=== PATIENT | female | born 1950 | race African-American/Black ===

== ENCOUNTER 2019-09-09 19:28 | Inpatient (IN) | payer MEDICARE, OTHER ==
[~2019-09-09 19:28] MED LIST: Heparin 1,000 UNITS/ML VIAL ONE
[2019-09-09 20:42] LABS: Anion Gap 21 mmol/L (10-20); BUN (Urea Nitrogen) 22 mg/dL (9.8-20.1); Calc. Creatinine Clearance 0 mL/min (70-130); Calcium 8.5 mg/dL (7.8-10.44); Carbon Dioxide 21 mmol/L (23-31); Chloride 102 mmol/L (98-107); Estimated GFR-MDRD 43; Glucose 98 mg/dL (80-115); Magnesium 1.7 mg/dL (1.6-2.6); Sodium 141 mmol/L (136-145)
[2019-09-09 20:50] LABS: Potassium 2.6 mmol/L (3.5-5.1)
[2019-09-09] MEDS ORDERED: Potassium Chloride 20 MEQ TAB ONE (20:52)
--- NOTE | 2019-09-09 21:02 | PDOC.HHP ---
Hospitalist HPI - History of Present Illness tingling of lips and hands History of Present Illness: Patient presents complaining of tingling in her lips and hands for the last couple of days. Reports having diarrhea x 3 yesterday and x 1 today. It was very watery. Her stools have always fluctuated between diarrhea and constipation but no known underlying bowel disease. States she has had electrolyte issues in the past as well. Reports her main reason for coming in was tightness in her chest for the last week. She states this comes and goes. She feels tightness in her back as well. Not worse with movement. No associated cough or shortness of breath. No trauma. No nausea/vomiting. Denies any dizziness. No recent fevers or chills. She had an xray done at [facility] where she was initially seen and CXR was unremarkable. Currently she is asymptomatic. She has some pain in her left knee which is chronic. ED Course: At [facility] ED Dr. Schultz states she had an EKG that was unremarkable. Mg+ 1.0 and K+ 2.2, she was given 20 mEq of Potassium Chloride and 1 gm of Mg Sulfate, then transferred here. He plans to obtain a BMP and will give additional electrolyte replacement. Will also obtain a repeat EKG. Hospitalist ROS - Review of Systems Constitutional: denies: fever, chills, sweats, weakness, malaise, other Eyes: denies: pain, vision change, conjunctivae inflammation, eyelid inflammation, redness, other ENT: denies: ear pain, ear discharge, nose pain, nose discharge, nose congestion , mouth pain, mouth swelling, throat pain, throat swelling, other Respiratory: denies: cough, dry, shortness of breath, hemoptysis, SOB with excertion, pleuritic pain, sputum, wheezing, other Cardiovascular: reports: other (chest tightness). denies: chest pain, palpitations, orthopnea, paroxysmal noc. dyspnea, edema, light headedness Gastrointestinal: reports: diarrhea. denies: nausea, vomiting, abdominal pain, constipation, melena, hematochezia, other Genitourinary: denies: dysuria, frequency, incontinence, hematuria, retention, other Musculoskeletal: reports: back pain, other (left knee pain, chronic) Skin: denies: rash, lesions, emeka, bruising, other Neurological: reports: other (perioral tingling and tingling of both hands.). denies: weakness, numbness, incoordination, change in speech, confusion, seizures - Medication Medications: ALLERGIES: No known drug allergies. CURRENT MEDICATIONS: Aspirin [facility] Sep 09, 2019 19:33 [facility] [place] [place] TABLET, CHEWABLE : Strength - 81 mg : ORAL Patient Dose: 1 tab(s) Oral once a day. folic acid oral [facility] Sep 09, 2019 19:33 [facility] [place] TABLET : Strength - 1 mg : ORAL Patient Dose: 1 tab(s) Oral once a day. lisinopril [facility] Sep 09, 2019 19:33 [facility] [place] [place] TABLET : Strength - 10 mg : ORAL Patient Dose: 1 tab(s) Oral once a day. Norvasc [facility] Sep 09, 2019 19:34 KAIT [facility] [place] tablet : Strength - 10 mg : ORAL Patient Dose: Unknown. Lipitor [facility] Sep 09, 2019 19:34 KA[facility] [place] [place] tablet : Strength - 10 mg : ORAL Patient Dose: Unknown. Hospitalist History - Past Medical History Source: patient Cardiac: reports: HTN, Hyperlipidemia Musculoskeletal: reports: Chronic low back pain Rheumatologic: reports: Gout, Rheumatoid arthritis Endocrine: reports: Diabetes - Past Surgical History Past Surgical History: reports: Hysterectomy - Family History Family History: reports: no pertinent history - Social History Smoking Status: Current every day smoker (1/2 ppd) Alcohol: reports: Heavy (On the weekends she drinks 1 pint of jersey) Drugs: reports: none Living Situation: With Family Activity level: uses cane/walker (sometimes able to walk independently when not having issues with her RA or gout) - Exam General Appearance: NAD Eye: PERRL, anicteric sclera ENT: dry oral mucosa Neck: supple, no lymphadenopathy Heart: RRR, normal peripheral pulses Respiratory: CTAB, no rales, no ronchi, normal chest expansion, no tachypnea Respiratory - other findings: no discomfort with palpation of chest Gastrointestinal: soft (obese), non-tender, normal bowel sounds, no guarding, no rigidity Extremities: no edema Neurological - other findings: altered sensation of fingers in both hands improving Musculoskeletal: no muscle wasting Musculoskeletal - other findings: Severe deformity of PIP joints in right hand, also left 2st MTP joint boggy Psychiatric: normal affect, A&O x 3 Hospitalist Results - Labs Result Diagrams: 09/09/19 20:15 Lab results: Sodium 141 mmol/L (136-145) 09/09/19 20:15 Potassium 2.6 mmol/L (3.5-5.1) L* 09/09/19 20:15 Chloride 102 mmol/L (98-107) 09/09/19 20:15 Carbon Dioxide 21 mmol/L (23-31) L 09/09/19 20:15 BUN 22 mg/dL (9.8-20.1) H 09/09/19 20:15 Creatinine 1.47 mg/dL (0.6-1.1) H 09/09/19 20:15 Glucose 98 mg/dL (80-115) 09/09/19 20:15 Calcium 8.5 mg/dL (7.8-10.44) 09/09/19 20:15 - EKG Interpretation EKG: NSR per Dr. Schultz. Hospitalist H&P A/P - Problem (1) Hypomagnesemia Code(s): E83.42 - HYPOMAGNESEMIA Status: Acute (2) Hypokalemia Code(s): E87.6 - HYPOKALEMIA Status: Acute (3) Chest tightness Code(s): R07.89 - OTHER CHEST PAIN Status: Acute (4) Diarrhea Code(s): R19.7 - DIARRHEA, UNSPECIFIED Status: Acute (5) HTN (hypertension) Code(s): I10 - ESSENTIAL (PRIMARY) HYPERTENSION Status: Chronic (6) HLD (hyperlipidemia) Code(s): E78.5 - HYPERLIPIDEMIA, UNSPECIFIED Status: Chronic (7) Gout Code(s): M10.9 - GOUT, UNSPECIFIED Status: Chronic (8) Rheumatoid arthritis Code(s): M06.9 - RHEUMATOID ARTHRITIS, UNSPECIFIED Status: Chronic - Plan Plan: Monitor electrolytes and continue to replace as necessary. Awaiting repeat EKG. Stool studies including c. diff. Trend troponins. Telemetry monitoring. Gentle IV fluids. Check BNP, TSH, AM lipid panel. Reconcile home medications once verified. CODE STATUS FULL Surrogate Decision maker, her niece Alicia Richards,
[2019-09-09] MEDS ORDERED: Potassium Chloride 40 MEQ in Sodium Chloride 0.9% 500 ML IVPB SCH (21:30)
[2019-09-09] MEDS ORDERED: Acetaminophen 650 MG Suppository PR PRN (22:21)
[2019-09-09] MEDS ORDERED: Sodium Chloride 0.9% 1,000 ML IV SCH (22:30)
[2019-09-09 22:55] VITALS: BMI 33.7
[2019-09-10 01:14] LABS: Anion Gap 18 mmol/L (10-20); BUN (Urea Nitrogen) 21 mg/dL (9.8-20.1); Calc. Creatinine Clearance 60 mL/min (70-130); Calcium 8.3 mg/dL (7.8-10.44); Carbon Dioxide 23 mmol/L (23-31); Chloride 106 mmol/L (98-107); Estimated GFR-MDRD 47; Glucose 95 mg/dL (80-115); Sodium 144 mmol/L (136-145)
[2019-09-10 01:19] LABS: Potassium 2.7 mmol/L (3.5-5.1)
[2019-09-10] MEDS ORDERED: Potassium Chloride 20 MEQ TAB PO SCH ×4 (02:00→12:00)
[2019-09-10 04:34] LABS: #Lymphocytes 0.7 thou/uL (1.20-3.40); #Monocytes 0.4 thou/uL (0.11-0.59); %Basophils 0.1 % (0.0-1.0); %Eosinophils 0.2 % (0.0-10.0); %Lymphocytes 8.2 % (21.0-51.0); %Monocytes 3.8 % (0.0-10.0); %Neutrophils 87.7 % (42.0-75.0); Hemoglobin 8.5 g/dL (12.0-16.0); Mean Corpuscular HGB CONC 33.3 g/dL (32.0-36.0); Mean Corpuscular Hemoglobin 32.4 pg (27.0-31.0); Mean Corpuscular Volume 97.4 fL (78.0-98.0); Mean Platelet Volume 8.1 fL (7.4-10.4); Platelet Count 172 thou/uL (130-400); RBC Distribution Width 15.3 % (11.5-14.5); Red Blood Cell (RBC) Count 2.62 mill/uL (4.20-5.40); White Blood Cell (WBC) Count 9.1 thou/uL (4.8-10.8)
[2019-09-10] MEDS ORDERED: Magnesium Sulfate 4 GM in Sodium Chloride 0.9% 250 ML 250 ML IVPB SCH (06:30)
[2019-09-10] MEDS ORDERED: Potassium Phosphate 30 MMOL in Sodium Chloride 0.9% 250 ML 250 ML IVPB SCH ×2 (06:30→12:00)
[2019-09-10] MEDS ORDERED: NS 0.9% w/ 40 MEQ KCL 1,000 ML IV SCH (06:30)
[2019-09-10] MEDS ORDERED: Magnesium 2 GM/50 ML 2 GM in Premix Bag 1 BAG IVPB SCH ×2 (06:30→12:00)
[2019-09-10 07:08] LABS: Phosphorus 1.7 mg/dL (2.3-4.7)
[2019-09-10] MEDS: Cyanocobalamin (Vitamin B-12) 1,000 MCG TAB PO SCH (08:29)
[2019-09-10] MEDS: Multivit, Therapeutic 1 TAB PO SCH (08:29)
[2019-09-10] MEDS ORDERED: Prevnar 13-Val Conj/PF 0.5 ML SYRINGE IM ONE (09:00)
--- NOTE | 2019-09-10 09:20 | PDOC.HOSPP ---
- Subjective Encounter Date: 09/10/19 Encounter Time: 07:30 Subjective: Patient seen and examined for Acute Gastroenteritis/Gen weakness. No IV access. Diarrhea +. No new complaints. No overnight events - Objective Vital Signs & Weight: Vital Signs (12 hours) Temp Pulse Resp BP BP Pulse Ox 09/10/19 03:51 98.7 F 88 18 120/60 98 09/09/19 23:14 98.3 F 97 18 115/55 L 99 09/09/19 22:54 98.3 F 97 18 115/55 L 99 Weight Weight 209 lb I&O: 09/09/19 09/10/19 09/11/19 06:59 06:59 06:59 Intake Total 200 Balance 200 Result Diagrams: 09/10/19 04:13 09/10/19 00:46 Additional Labs: Microbiology 09/10/19 03:17 Stool - Pending C. difficile GDH Antigen & Toxins - Final 09/10/19 03:17 Rectum Stool Lactoferrin - Final 09/10/19 03:17 Rectum Rapid Parasite Screen - Final 09/10/19 03:17 Rectum Campylobacter Antigen Assay - Final 09/10/19 03:17 Rectum Shiga Toxin Test - Final Laboratory Tests 09/10/19 09/10/19 00:46 00:46 Phosphorus 1.7 L Magnesium 1.6 Radiology Reviewed by me: Yes (CXR - no infiltrate) EKG Reviewed by me: Yes (Tele SR) Hospitalist ROS - Review of Systems Respiratory: denies: cough, dry, shortness of breath, hemoptysis, SOB with excertion, pleuritic pain, sputum, wheezing, other Cardiovascular: denies: chest pain, palpitations, orthopnea, paroxysmal noc. dyspnea, edema, light headedness, other Gastrointestinal: reports: nausea, diarrhea. denies: vomiting, abdominal pain, constipation, melena, hematochezia - Medication Medications: Active Medications Generic Name Dose Route Start Last Admin Trade Name Freq PRN Reason Stop Dose Admin Cyanocobalamin 1,000 mcg 09/10/19 09:00 09/10/19 08:29 Vitamin B-12 PO 1,000 mcg DAILY [place] Administration Multivitamins 1 tab 09/10/19 09:00 09/10/19 08:29 Theragran PO 1 tab DAILY [place] Administration - Exam General Appearance: NAD Neck: supple, no JVD Heart: RRR, no gallops, no rubs, normal peripheral pulses Respiratory: no wheezes, no rales, no ronchi, normal chest expansion Gastrointestinal: soft, non-tender, non-distended, normal bowel sounds Extremities: no cyanosis, no clubbing Skin: normal turgor Neurological: no new deficit Psychiatric: normal affect, A&O x 3 Hosp A/P - Plan DVT proph w/SCDs Acute infectious Gastroenteritis/Gen weakness Atypical CP Dehydration Hypokalemia Hypomagnesemia Hypophosphatemia CKD 3 Gout Obesity BMI 33.7 HTN HLD PLAN: Pt has no IV access after multiple attempt Will need PICC line due to significant electrolyte abn and continued diarrhea 2 gm IV Magnesium x 1 30 mmol Potassium phosphate x 1 Start IVF Recheck labs later today and in AM Cdiff ruled out Hold Atbx for now Add IV Pepcid
[2019-09-10] MEDS ORDERED: metroNIDAZOLE 500 MG in Premix Bag 1 BAG IVPB SCH (10:00)
[2019-09-10] MEDS: Acetaminophen 325 MG TAB PO PRN ×3 (11:51→21:03)
--- NOTE | 2019-09-10 12:18 | SPC ---
Sonographic guided PICC placement HISTORY: Sepsis. FINDINGS: After explaining the procedure and answering all questions, the left upper extremity was pr epped and draped in usual sterile fashion. Sterile technique, buffered local anesthesia, sonographic guidance, and a 22-gauge needle were used to carefully access the left basilic vein. Aravind dard technique was used to place the tip of a 5 Congolese dual-lumen PICC so that the tip lies at the level of the cavoatrial junction. Catheter was flushed and secured externally. Patient tolerated the procedure well and was returned in unchanged condition. Fluoroscopy time 0 seconds. IMPRESSION : Left upper extremity PICC is ready for use.
[2019-09-10] MEDS: Famotidine/PF 20 mg/2ml Vial SLOW IVP SCH ×2 (12:19→21:03)
[2019-09-10 14:30] LABS: Lactic Acid 2.7 mmol/L (0.5-2.2)
[2019-09-10 14:33] LABS: Anion Gap 16 mmol/L (10-20); BUN (Urea Nitrogen) 18 mg/dL (9.8-20.1); Calc. Creatinine Clearance 67 mL/min (70-130); Calcium 8.5 mg/dL (7.8-10.44); Carbon Dioxide 22 mmol/L (23-31); Chloride 106 mmol/L (98-107); Estimated GFR-MDRD 54; Glucose 189 mg/dL (80-115); Magnesium 1.9 mg/dL (1.6-2.6); Potassium 3.9 mmol/L (3.5-5.1); Sodium 140 mmol/L (136-145)
[2019-09-10] MEDS: NS 0.9% w/ 40 MEQ KCL 1,000 ML IV SCH ×2 (14:53→22:41)
[2019-09-10] MEDS: Loperamide HCl 2 MG CAP PO PRN ×2 (15:10→21:04)
--- NOTE | 2019-09-10 15:19 | EKG ---
Test Reason : Blood Pressure : / mmHG Vent. Rate : 106 BPM Atrial Rate : 106 BPM P-R Int : 140 ms QRS Dur : 078 ms QT Int : 300 ms P-R-T Axes : 048 -18 126 degrees QTc Int : 398 ms Sinus tachycardia Low voltage QRS Nonspecific T wave abnormality Abnormal ECG Confirmed by STEVE MALDONADO ([id number]), pictures editor IDALIA COELLO ([id number]) on 09/10/2019 3:19:03 PM Referred By: Confirmed By:STEVE Mckinney
[2019-09-10] MEDS: Amlodipine 5 MG TAB PO SCH (21:04)
[2019-09-11 04:35] LABS: ALT (SGPT) 13 U/L (8-55); AST (SGOT) 26 U/L (5-34); Albumin 2.4 g/dL (3.4-4.8); Alkaline Phosphatase 54 U/L (40-110); Anion Gap 10 mmol/L (10-20); BUN (Urea Nitrogen) 15 mg/dL (9.8-20.1); Bilirubin, Total 0.5 mg/dL (0.2-1.2); Calc. Creatinine Clearance 85 mL/min (70-130); Calcium 8.3 mg/dL (7.8-10.44); Carbon Dioxide 24 mmol/L (23-31); Chloride 111 mmol/L (98-107); Estimated GFR-MDRD 71; Globulin 2.9 g/dL (2.4-3.5); Glucose 112 mg/dL (80-115); Magnesium 1.6 mg/dL (1.6-2.6); Potassium 5.2 mmol/L (3.5-5.1); Protein, Total 5.3 g/dL (6.0-8.3); Sodium 140 mmol/L (136-145)
[2019-09-11 04:39] LABS: Phosphorus 1.9 mg/dL (2.3-4.7)
[2019-09-11 04:59] LABS: Band 18 % (5-11); Eosinophils 3 % (0-10); Hemoglobin 8.2 g/dL (12.0-16.0); Lymphocytes 12 % (21-51); MDiff Complete? YES; Mean Corpuscular HGB CONC 32.8 g/dL (32.0-36.0); Mean Corpuscular Hemoglobin 32.6 pg (27.0-31.0); Mean Corpuscular Volume 99.3 fL (78.0-98.0); Monocytes 10 % (0-10); Neutrophil 57 % (42-75); Platelet Count 162 thou/uL (130-400); RBC Distribution Width 15.6 % (11.5-14.5); Red Blood Cell (RBC) Count 2.51 mill/uL (4.20-5.40); White Blood Cell (WBC) Count 8.6 thou/uL (4.8-10.8)
[2019-09-11] MEDS: Sodium Chloride 0.9% 1,000 ML IV SCH ×2 (05:22→20:41)
[2019-09-11] MEDS: Folic Acid 1 MG TAB PO SCH (09:30)
[2019-09-11] MEDS: Amlodipine 5 MG TAB PO SCH ×2 (09:30→20:42)
[2019-09-11] MEDS: Famotidine/PF 20 mg/2ml Vial SLOW IVP SCH ×2 (09:30→20:44)
[2019-09-11] MEDS: Multivit, Therapeutic 1 TAB PO SCH (09:30)
[2019-09-11] MEDS: Cyanocobalamin (Vitamin B-12) 1,000 MCG TAB PO SCH (09:30)
[2019-09-11] MEDS: Atorvastatin Calcium 10 MG TAB PO SCH (09:30)
[2019-09-11] MEDS: Aspirin 81 mg Enteric Coated Tablet PO SCH (09:30)
[2019-09-11] MEDS: Loperamide HCl 2 MG CAP PO PRN ×2 (09:31→20:44)
[2019-09-11] MEDS ORDERED: Ketorolac Tromethamine 30 MG/ML VIAL IVP SCH (11:00)
[2019-09-11] MEDS: Acetaminophen 325 MG TAB PO PRN ×2 (12:16→20:44)
--- NOTE | 2019-09-11 14:51 | PDOC.HOSPP ---
- Subjective Encounter Date: 09/11/19 Encounter Time: 14:47 Subjective: Ms. Shaw was seen today in follow-up of numbness and tingling in both hands. she says the problem persists, and she wants to know why. She says she can not go home with her hands in this condition. She denies any weakness. - Objective Vital Signs & Weight: Vital Signs (12 hours) Temp Pulse Pulse Pulse Resp BP BP 09/11/19 12:14 98.5 F 101 H 16 09/11/19 09:30 101 H 09/11/19 09:07 106 H 105 H 123/60 109/55 L 09/11/19 07:45 09/11/19 07:38 98.4 F 101 H 18 09/11/19 03:21 98.3 F 99 20 BP Pulse Ox 09/11/19 12:14 135/68 96 09/11/19 09:30 09/11/19 09:07 09/11/19 07:45 95 09/11/19 07:38 141/72 H 95 09/11/19 03:21 131/58 L 95 Weight Admit Weight 209 lb Weight 209 lb I&O: 09/10/19 09/11/19 09/12/19 06:59 06:59 06:59 Intake Total 200 1500 Output Total 1125 Balance 200 375 Result Diagrams: 09/11/19 04:00 09/11/19 04:00 Additional Labs: Accuchecks 09/11/19 09/11/19 09/10/19 10:41 05:39 20:39 POC Glucose 119 H 124 H 198 H 09/10/19 16:35 POC Glucose 108 Hospitalist ROS - Medication Medications: Active Medications Generic Name Dose Route Start Last Admin Trade Name Freq PRN Reason Stop Dose Admin Acetaminophen 650 mg 09/09/19 22:21 09/11/19 12:16 Tylenol PO 650 mg Q4H PRN Administration Headache/Fever/Mild Pain (1-3) Amlodipine Besylate 5 mg 09/10/19 21:00 09/11/19 09:30 Norvasc PO 5 mg BID [place] Administration Aspirin 81 mg 09/11/19 09:00 09/11/19 09:30 Ecotrin PO 81 mg DAILY [place] Administration Atorvastatin Calcium 10 mg 09/11/19 09:00 09/11/19 09:30 Lipitor PO 10 mg DAILY [place] Administration Cyanocobalamin 1,000 mcg 09/10/19 09:00 09/11/19 09:30 Vitamin B-12 PO 1,000 mcg DAILY [place] Administration Famotidine 20 mg 09/10/19 09:00 09/11/19 09:30 Pepcid SLOW IVP 20 mg BID [place] Administration Folic Acid 1 mg 09/11/19 09:00 09/11/19 09:30 Folvite PO 1 mg DAILY [place] Administration Sodium Chloride 1,000 mls @ 70 mls/hr 09/11/19 05:30 09/11/19 05:22 Normal Saline 0.9% IV 1,000 mls .[id number] [place] Administration Loperamide HCl 2 mg 09/10/19 14:29 09/11/19 09:31 Imodium PO 2 mg PRN PRN Administration Diarrhea/Loose Stools Multivitamins 1 tab 09/10/19 09:00 09/11/19 09:30 Theragran PO 1 tab DAILY [place] Administration - Exam Eye: PERRL Heart: RRR, no murmur, no gallops, no rubs, normal peripheral pulses Respiratory: CTAB, no wheezes, no rales, no ronchi, normal chest expansion, no tachypnea, normal percussion Gastrointestinal: soft, non-tender, non-distended, normal bowel sounds, no palpable masses Extremities: no cyanosis, no clubbing (+ tophaceous depositins in the distal PIP of the right hand, goor radial and ulnar pulses bilaterally) Hosp A/P (1) Numbness and tingling in both hands Code(s): R20.0 - ANESTHESIA OF SKIN; R20.2 - PARESTHESIA OF SKIN Status: Acute (2) Diarrhea Code(s): R19.7 - DIARRHEA, UNSPECIFIED Status: Acute (3) Gout Code(s): M10.9 - GOUT, UNSPECIFIED Status: Chronic (4) HTN (hypertension) Code(s): I10 - ESSENTIAL (PRIMARY) HYPERTENSION Status: Chronic - Plan * Numbness and tingling in both hands- I suspect this is due to the severe tophaceous deposits in the hands, she may have as well in the wrist, and could be causing CTS * Will check an X-ray f both hands to see if there are significant deposits at the level of the wrist * Will also obtain an MRI of the C-spine * Check a TSH, and re-check her electrolytes * I have also recommended that she obtain an outpatient EMG once this is available * Gout- recommend outpatient Rheumatology evaluation- and will check a serum uric acid level * Diarrhea- resolved * HTN- blood pressure is controlled * Hopefully home tomorrow
[2019-09-11 15:36] LABS: Anion Gap 15 mmol/L (10-20); BUN (Urea Nitrogen) 12 mg/dL (9.8-20.1); Calc. Creatinine Clearance 79 mL/min (70-130); Calcium 8.6 mg/dL (7.8-10.44); Carbon Dioxide 20 mmol/L (23-31); Chloride 109 mmol/L (98-107); Estimated GFR-MDRD 65; Glucose 143 mg/dL (80-115); Potassium 5.1 mmol/L (3.5-5.1); Sodium 139 mmol/L (136-145); Uric Acid 10.7 mg/dL (2.6-6.0)
[2019-09-11 16:08] LABS: Thyroid Stimulating Hormone 2.7656 uIU/mL (0.35-4.94)
--- NOTE | 2019-09-11 18:34 | RAD ---
Exam:3 views right hand HISTORY: Numbness COMPARISON: None FINDINGS: Diffuse bone mineralization. Polyarticular erosive arthropathy with associated soft tissue swelling. IMPRESSION: Polyarticular erosive arthropathy. Evaluate for rheumatoid arthritis versus psoriatic art hritis. Transcribed Date/Time: 09/11/2019 6:45 PM
--- NOTE | 2019-09-11 18:45 | RAD ---
TWO VIEWS OF THE LEFT HAND: 09/11/19 INDICATION: History of left hand numbness. COMPARISON: None. FINDINGS: There is diffuse osteopenia. There are areas of periarticular erosion involving the thumb metacarpal head, index finger metacarpal head, long finger metacarpal head and small digit radiocarpal head. Sma ll erosive change is seen at the base of the ulnar styloid process, ulnar styloid process itself as w ell as the radial styloid process. There is diffuse soft tissue swelling. No acute fracture is evide nt. 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 Findings are fairly symmetric with the contralateral right hand raising suspicion for entity such as rheumatoid arthritis. Psoriatic arthritis could produce a similar findings. POS: BH
[2019-09-12 02:22] LABS: Bacteria/HPF 3+ HPF (None Seen); Bilirubin Negative (Negative); Blood, Urine 1+ (Negative); Clarity Turbid (Clear); Glucose, Urine (Dipstick) Normal (Negative); Leukocyte 500 Leu/uL (Negative); Nitrite 2+ (Negative); Protein, Urine (Dipstick) 10 mg/dL (Neg-Trace); Squamous Epithelial 0-3 HPF (0-3); Urobilinogen Normal mg/dL (Less than 2); WBC/HPF Greater than 50 HPF (0-3)
[2019-09-12 02:23] LABS: Urine Culture Reflex Yes Yes
[2019-09-12] MEDS ORDERED: cefTRIAXone\\ROCEPHIN 1 GM in Sodium Chloride 0.9% 100 ML IVPB SCH (04:00)
[2019-09-12 06:24] LABS: Anion Gap 10 mmol/L (10-20); BUN (Urea Nitrogen) 10 mg/dL (9.8-20.1); Calc. Creatinine Clearance 96 mL/min (70-130); Calcium 8.9 mg/dL (7.8-10.44); Carbon Dioxide 26 mmol/L (23-31); Estimated GFR-MDRD 77; Glucose 89 mg/dL (80-115)
[2019-09-12 06:52] LABS: Chloride 110 mmol/L (98-107); Sodium 141 mmol/L (136-145)
[2019-09-12] MEDS: Atorvastatin Calcium 10 MG TAB PO SCH (08:47)
[2019-09-12] MEDS: Amlodipine 5 MG TAB PO SCH (08:47)
[2019-09-12] MEDS: Famotidine/PF 20 mg/2ml Vial SLOW IVP SCH (08:47)
[2019-09-12] MEDS: Cyanocobalamin (Vitamin B-12) 1,000 MCG TAB PO SCH (08:47)
[2019-09-12] MEDS: Multivit, Therapeutic 1 TAB PO SCH (08:47)
[2019-09-12] MEDS: Aspirin 81 mg Enteric Coated Tablet PO SCH (08:47)
[2019-09-12] MEDS: Folic Acid 1 MG TAB PO SCH (08:47)
[2019-09-12] MEDS: Sodium Chloride 0.9% 1,000 ML IV SCH (08:48)
--- NOTE | 2019-09-12 12:01 | MRI ---
MR CERVICAL SPINE WITHOUT CONTRAST INDICATION: Bilateral hand numbness TECHNIQUE: Multiplanar multisequence MR images were obtained of the cervical spine without contrast. COMPARISON: None FINDINGS: Motion artifact heavily degrades image detail Posterior fossa: Within normal limits. Bone marrow signal intensity: Normal Spinal alignment: Normal. Craniocervical junction: Normal appearing. Prevertebral and perivertebral soft tissues: Visualized soft tissues appear within normal limits. Vertebral levels: C2-C3: Mild facet osteoarthrosis but no appreciable central canal or neural foraminal narrowing. C3-4: There is uncovertebral hypertrophy and facet joint degenerative change inducing mild left neura l foraminal narrowing. There is a mild broad-based disc bulge inducing mild central canal narrowing. C4-5: There is a broad-based bulge with uncovertebral hypertrophy and facet joint degenerative nugent e inducing mild left and moderate right neural foraminal narrowing. There is mild central canal narrowing. C5-C6: Broad-based bulge with uncovertebral hypertrophy facet joint degenerative change inducing mild central canal narrowing. C6-C7:, There is uncovertebral hypertrophy and facet joint degenerative change inducing moderate left neural foraminal narrowing. There is a mild broad-based bulge causing mild effacement of ventral subarachnoid space without cord contact. C7-T1: No appreciable central canal or neuroforaminal narrowing. IMPRESSION: 1. Limitation exam due to motion artifact. 2. Multilevel neural foraminal narrowing as above.
--- NOTE | 2019-09-12 14:18 | PDOC.HOSPP ---
- Subjective Encounter Date: 09/12/19 Encounter Time: 14:15 Subjective: Ms. Shaw was seen today in follow-up of numbness in her finger tips. she does not have any new complaints. GI symptoms have resolved. - Objective Vital Signs & Weight: Vital Signs (12 hours) Temp Pulse Resp BP Pulse Ox 09/12/19 12:00 97.8 F 106 H 19 124/60 99 09/12/19 08:47 106 H 09/12/19 08:00 97.1 F L 113 H 17 130/65 100 09/12/19 04:00 98.3 F 106 H 18 130/65 96 Weight Admit Weight 209 lb Weight 219 lb 5.759 oz I&O: 09/11/19 09/12/19 09/13/19 06:59 06:59 06:59 Intake Total 1500 2670 Output Total 1125 403 Balance 375 2267 Result Diagrams: 09/11/19 04:00 09/12/19 05:50 Additional Labs: Accuchecks 09/12/19 09/11/19 09/11/19 10:47 20:26 16:36 POC Glucose 108 125 H 124 H 09/10/19 06:14 POC Glucose 96 Hospitalist ROS - Medication Medications: Active Medications Generic Name Dose Route Start Last Admin Trade Name Freq PRN Reason Stop Dose Admin Acetaminophen 650 mg 09/09/19 22:21 09/11/19 20:44 Tylenol PO 650 mg Q4H PRN Administration Headache/Fever/Mild Pain (1-3) Amlodipine Besylate 5 mg 09/10/19 21:00 09/12/19 08:47 Norvasc PO 5 mg BID [place] Administration Aspirin 81 mg 09/11/19 09:00 09/12/19 08:47 Ecotrin PO 81 mg DAILY [place] Administration Atorvastatin Calcium 10 mg 09/11/19 09:00 09/12/19 08:47 Lipitor PO 10 mg DAILY [place] Administration Cyanocobalamin 1,000 mcg 09/10/19 09:00 09/12/19 08:47 Vitamin B-12 PO 1,000 mcg DAILY [place] Administration Famotidine 20 mg 09/10/19 09:00 09/12/19 08:47 Pepcid SLOW IVP 20 mg BID [place] Administration Folic Acid 1 mg 09/11/19 09:00 09/12/19 08:47 Folvite PO 1 mg DAILY [place] Administration Sodium Chloride 1,000 mls @ 70 mls/hr 09/11/19 05:30 09/12/19 08:48 Normal Saline 0.9% IV 1,000 mls .[id number] [place] Administration Ceftriaxone Sodium 1 gm/ 100 mls @ 200 mls/hr 09/12/19 04:00 09/12/19 04:19 Sodium Chloride IVPB 100 mls 0400 [place] Administration Loperamide HCl 2 mg 09/10/19 14:29 09/11/19 20:44 Imodium PO 2 mg PRN PRN Administration Diarrhea/Loose Stools Multivitamins 1 tab 09/10/19 09:00 09/12/19 08:47 Theragran PO 1 tab DAILY [place] Administration - Exam Eye: PERRL Heart: RRR, no murmur, no gallops, no rubs, normal peripheral pulses Respiratory: CTAB, no wheezes, no rales, no ronchi, normal chest expansion, no tachypnea Gastrointestinal: soft, non-tender, non-distended, normal bowel sounds, no palpable masses, no hepatomegaly Extremities: no cyanosis Hosp A/P (1) Numbness and tingling in both hands Code(s): R20.0 - ANESTHESIA OF SKIN; R20.2 - PARESTHESIA OF SKIN Status: Acute (2) Diarrhea Code(s): R19.7 - DIARRHEA, UNSPECIFIED Status: Acute (3) Gout Code(s): M10.9 - GOUT, UNSPECIFIED Status: Chronic (4) HTN (hypertension) Code(s): I10 - ESSENTIAL (PRIMARY) HYPERTENSION Status: Chronic - Plan * Numbness and tingling in both hands- MRI of the C- spine was reviewed. There were no worrisome findings * Thyroid function was normal, as well as calcium levels. * Discussed with the patient in detail * She is stable for discharge home
[2019-09-12 16:02] VITALS: BP 128/64; TEMP 97.2
--- NOTE | 2019-09-13 01:21 | DIS ---
DATE OF ADMISSION: 09/09/2019 DATE OF DISCHARGE: 09/12/2019 PRIMARY CARE PROVIDER: Alicia Claudio. DISCHARGE DISPOSITION: Home. PRIMARY DISCHARGE DIAGNOSES: 1. Gastroenteritis, resolved. 2. Tophaceous gout. 3. Rheumatoid arthritis. 4. Morbid obesity with a BMI of 35. 5. Hypertension. 6. Diabetes mellitus type 2. 7. Probable carpal tunnel syndrome. DISCHARGE MEDICATIONS: Please note that the patient had been off allopurinol for several years and restarting today at 100 mg daily. 1. Lisinopril 10 mg daily. 2. Folic acid 1 mg daily. 3. Lipitor 10 mg daily. 4. Aspirin 81 mg daily. 5. Norvasc 10 mg a day. IMAGING DONE DURING HOSPITAL STAY: The patient had an echocardiogram which the ejection fraction was estimated at 60% to 65%. There was some E to A flow reversal suggestive of diastolic dysfunction, and the patient had an MRI of the cervical spine showing some multilevel degenerative or neural foraminal narrowing. CODE STATUS: Full code. ALLERGIES: NO KNOWN DRUG ALLERGIES. HOSPITAL COURSE: Ms. Shaw is a pleasant 69-year-old female, who presented to the emergency room complaining of tingling in her hands and lips. She says it has been for the last couple of days. She also was having some diarrhea off and on for a day, which was watery. She was admitted to the hospital and the diarrhea was evaluated. She had stool studies done, all of which were negative for C diff, Campylobacter, lactoferrin O and P screen, this actually resolved without specific treatment. However, the patient continued to complain of some numbness and tingling in her hands particularly. She originally had some hypomagnesemia and hypokalemia, which was thought to be the culprit. However, once this was replaced, she continued to have these complaints. The patient was noted to have fairly severe tophaceous gout in her distal PIP joints on both the right and left hand, but primarily on the right hand to the point where the tophi were visible within a naked eye. I suspect that this is likely the culprit of her numbness and tingling and she could have some deposits within the wrist, which may be causing a carpal tunnel syndrome. Also, diabetes could place her at risk for carpal tunnel syndrome as well. We checked a thyroid function test which was negative. Also, we did an MRI of her cervical spine to rule out any significant cervical disease as a potential etiology. I explained to the patient that she should have an outpatient nerve conduction test done to solidify the diagnosis. Unfortunately, given the COVID-19 pandemic, we are not able to do this now. This would need to be done in the outpatient setting and I also recommended that she see a coding clerks supervisor as well. This is of her current symptoms. Her gout is not well controlled. Her uric acid level was 10.8. When I asked had she had been taking an allopurinol, she stated that she stopped taking it for no particular reason, she was not having any type of side effects. For this reason, we will be restarting the allopurinol and since she only had the numbness and no weakness in her hands, we will go ahead and discharge her home and she is to have close outpatient followup. Job ID: [id number]
== END 2019-09-12 16:09 | disposition home or self-care (01) | DRG 74 ==
LOC: ERS 19:28 → OBSVTOIN 21:24 → 2NO 21:24
PROVIDERS: ADMIT Internal Medicine; ATTEND Internal Medicine
PROC: 02HV33Z Insertion of Infusion Device into Superior Vena Cava, Percutaneous Approach (ICD-10-PCS; principal; 2019-09-10)
PROC: B548ZZA Ultrasonography of Superior Vena Cava, Guidance (ICD-10-PCS; 2019-09-10)
DX: G56.01 Carpal tunnel syndrome, right upper limb (principal); M1A.0411 Idiopathic chronic gout, right hand, with tophus (tophi); E83.42 Hypomagnesemia; E87.6 Hypokalemia; M25.562 Pain in left knee; G89.29 Other chronic pain; I10 Essential (primary) hypertension; E78.5 Hyperlipidemia, unspecified; M54.5 Low back pain; M06.9 Rheumatoid arthritis, unspecified; F17.210 Nicotine dependence, cigarettes, uncomplicated; R07.89 Other chest pain; E78.00 Pure hypercholesterolemia, unspecified; E11.9 Type 2 diabetes mellitus without complications; E83.39 Other disorders of phosphorus metabolism; E66.01 Morbid (severe) obesity due to excess calories; K52.9 Noninfective gastroenteritis and colitis, unspecified; E86.0 Dehydration; N18.3 Chronic kidney disease, stage 3 (moderate); Z68.33 Body mass index [BMI] 33.0-33.9, adult; Z90.710 Acquired absence of both cervix and uterus; Z79.82 Long term (current) use of aspirin; Z79.899 Other long term (current) drug therapy
CPT/HCPCS: 36415; 36416; 36569; 72141; 80048; 80053; 81001; 83605; 83630; 83735; 84100; 84439; 84443; 84484; 84550; 85025; 87045; 87046; 87077; 87086; 87186; 87324; 87328; 87329; 87427; 87449; 93005; 93306; 94760; 96365; C1751; J0696; J1644; J1885; J3475; J3480; J3490; J7030; J7050; S0028

== ENCOUNTER 2022-08-31 19:34 | Emergency (ER) | payer MEDICARE ==
[2022-08-31 21:34] LABS: Hemoglobin 10.9 g/dL (12.0-16.0); Mean Corpuscular HGB CONC 32.6 g/dL (32.0-36.0); Mean Corpuscular Hemoglobin 34.5 pg (27.0-31.0); Mean Platelet Volume 8.6 fL (7.4-10.4); Platelet Count 153 10x3/uL (130-400); RBC Distribution Width 14.9 % (11.5-14.5); Red Blood Cell (RBC) Count 3.16 mill/uL (4.20-5.40)
[2022-08-31 21:56] LABS: ALT (SGPT) 11 U/L (8-55); AST (SGOT) 30 U/L (5-34); Albumin 3.9 g/dL (3.4-4.8); Alkaline Phosphatase 82 U/L (40-110); Anion Gap 19 mmol/L (10-20); BUN (Urea Nitrogen) 23 mg/dL (9.8-20.1); Bilirubin, Total 0.2 mg/dL (0.2-1.2); Calc. Creatinine Clearance 0 mL/min (70-130); Calcium 8.8 mg/dL (7.8-10.44); Carbon Dioxide 15 mmol/L (23-31); Chloride 109 mmol/L (98-107); Estimated GFR 28; Globulin 3.4 g/dL (2.4-3.5); Glucose 89 mg/dL (83-110); Potassium 5.3 mmol/L (3.5-5.1); Protein, Total 7.3 g/dL (5.8-8.1); Sodium 138 mmol/L (136-145)
[2022-08-31] MEDS ORDERED: Bacitracin 1 PK ONE (22:09)
[2022-08-31 22:13] LABS: Anisocytosis SLIGHT = 6-15 cells (100X) (0-5/hpf); Eosinophils 1 % (0-10); Large Platelets SLIGHT; Lymphocytes 15 % (21-51); MDiff Complete? YES; Macrocytosis MODERATE=16-30 cells (100X) (0-5/hpf); Monocytes 8 % (0-10); Neutrophil 76 % (42-75); Ovalocytes SLIGHT = 2-5 cells (100X) (0-1/hpf); Platelet Morphology Comment Appears Adequate
== END 2022-08-31 22:15 | disposition home or self-care (01) ==
LOC: ERS 19:34
DX: S09.90XA Unspecified injury of head, initial encounter (principal); E11.9 Type 2 diabetes mellitus without complications; E78.00 Pure hypercholesterolemia, unspecified; I10 Essential (primary) hypertension; F17.210 Nicotine dependence, cigarettes, uncomplicated; W05.0XXA Fall from non-moving wheelchair, initial encounter
CPT/HCPCS: 36415; 70450; 72125; 80053; 84484; 85025; 93005

== ENCOUNTER 2023-06-23 21:31 | Inpatient (IN) | payer MEDICARE, BC ==
[2023-06-24] MEDS ORDERED: Ondansetron PF 4 MG/2 ML Vial IVP PRN (01:12)
[2023-06-24 01:16] VITALS: BMI 33.4
[2023-06-24] MEDS ORDERED: Dextrose 5% in Water 1,000 ML IV PRN (01:51)
[2023-06-24] MEDS ORDERED: Glucagon 1 MG/ML KIT IM PRN (01:51)
[2023-06-24] MEDS ORDERED: Dextrose 50% Abboject 50 ML SYRINGE SLOW IVP PRN (01:51)
[2023-06-24] MEDS ORDERED: HumaLOG 300 UNITS/3 ML VIAL SC PRN ×2 (01:51)
[2023-06-24 02:13] LABS: #Basophils 0.1 thou/uL (0.0-0.2); #Eosinphils 0.1 thou/uL (0.0-0.7); #Neutrophils 5.7 thou/uL (1.40-6.50); %Basophils 0.6 % (0.0-1.0); %Eosinophils 1.1 % (0.0-10.0); %Lymphocytes 14.3 % (21.0-51.0); %Monocytes 12.3 % (0.0-10.0); %Neutrophils 71.4 % (42.0-75.0); Hematocrit 26.5 % (36.0-47.0); Hemoglobin 8.4 g/dL (12.0-16.0); Mean Corpuscular HGB CONC 31.7 g/dL (32.0-36.0); Mean Corpuscular Volume 94.6 fl (78.0-98.0); Mean Platelet Volume 10.1 fL (7.4-10.4); Platelet Count 233 10x3/uL (130-400); RBC Distribution Width 14.1 % (11.5-14.5)
[2023-06-24 02:35] LABS: Anion Gap 13 mmol/L (10-20); BUN (Urea Nitrogen) 24 mg/dL (9.8-20.1); Calc. Creatinine Clearance 66 mL/min (70-130); Calcium 9.2 mg/dL (7.8-10.44); Carbon Dioxide 17 mmol/L (23-31); Chloride 111 mmol/L (98-107); Estimated GFR 50; Glucose 90 mg/dL (83-110); Magnesium 1.6 mg/dL (1.6-2.6); Sodium 136 mmol/L (136-145)
[2023-06-24 06:26] LABS: #Eosinphils 0.1 thou/uL (0.0-0.7); #Monocytes 0.6 thou/uL (0.11-0.59); %Basophils 0.7 % (0.0-1.0); %Eosinophils 2.2 % (0.0-10.0); %Lymphocytes 19.2 % (21.0-51.0); %Monocytes 10.5 % (0.0-10.0); %Neutrophils 67.1 % (42.0-75.0); Hematocrit 24.8 % (36.0-47.0); Hemoglobin 7.8 g/dL (12.0-16.0); Mean Corpuscular HGB CONC 31.5 g/dL (32.0-36.0); Mean Corpuscular Hemoglobin 30.4 pg (27.0-31.0); Mean Corpuscular Volume 96.5 fl (78.0-98.0); Mean Platelet Volume 9.6 fL (7.4-10.4); Platelet Count 200 10x3/uL (130-400); RBC Distribution Width 14.3 % (11.5-14.5); Red Blood Cell (RBC) Count 2.57 mill/uL (4.20-5.40); White Blood Cell (WBC) Count 5.9 10x3/uL (4.8-10.8)
[2023-06-24] MEDS: Heparin 5,000 UNITS/ML VIAL SC SCH (08:26)
[2023-06-24] MEDS: Allopurinol 300 MG TAB PO SCH (08:31)
[2023-06-24] MEDS: Amlodipine 5 MG TAB PO SCH (08:32)
[2023-06-24] MEDS: Atorvastatin Calcium 20 MG TAB PO SCH (08:33)
[2023-06-24] MEDS: Furosemide 20 MG (2 mL) VIAL SLOW IVP SCH (08:33)
[2023-06-24] MEDS: Aspirin 81 mg Enteric Coated Tablet PO SCH (08:33)
[2023-06-24] MEDS: Folic Acid 1 MG TAB PO SCH (08:33)
[2023-06-24] MEDS: Gabapentin 300 MG CAP PO SCH (08:34)
[2023-06-24] MEDS: Acetaminophen 325 MG TAB PO PRN (08:37)
[2023-06-24] MEDS: Furosemide 40 MG (4 mL) VIAL SLOW IVP SCH (15:04)
[2023-06-25 04:42] LABS: #Eosinphils 0.1 thou/uL (0.0-0.7); #Monocytes 0.5 thou/uL (0.11-0.59); #Neutrophils 2.6 thou/uL (1.40-6.50); %Basophils 0.4 % (0.0-1.0); %Eosinophils 3.1 % (0.0-10.0); %Lymphocytes 28.2 % (21.0-51.0); %Monocytes 11.9 % (0.0-10.0); %Neutrophils 56.2 % (42.0-75.0); Hematocrit 23.3 % (36.0-47.0); Hemoglobin 7.4 g/dL (12.0-16.0); Mean Corpuscular HGB CONC 31.8 g/dL (32.0-36.0); Mean Corpuscular Hemoglobin 30.8 pg (27.0-31.0); Mean Corpuscular Volume 97.1 fl (78.0-98.0); Mean Platelet Volume 9.8 fL (7.4-10.4); Platelet Count 183 10x3/uL (130-400); RBC Distribution Width 14.5 % (11.5-14.5); White Blood Cell (WBC) Count 4.5 10x3/uL (4.8-10.8)
[2023-06-25 05:08] LABS: Iron 30 ug/dL (50-170); Iron Binding Capacity, Total 176 mcg/dL (265-497)
[2023-06-25 05:10] LABS: Anion Gap 8 mmol/L (10-20); BUN (Urea Nitrogen) 21 mg/dL (9.8-20.1); Calc. Creatinine Clearance 57 mL/min (70-130); Calcium 8.6 mg/dL (7.8-10.44); Carbon Dioxide 24 mmol/L (23-31); Chloride 110 mmol/L (98-107); Estimated GFR 42; Glucose 93 mg/dL (83-110); Iron 29 ug/dL (50-170); Iron Binding Capacity, Total 180 mcg/dL (265-497); Potassium 4.3 mmol/L (3.5-5.1); Sodium 138 mmol/L (136-145)
[2023-06-26 06:35] LABS: #Eosinphils 0.2 thou/uL (0.0-0.7); #Monocytes 0.5 thou/uL (0.11-0.59); %Basophils 0.4 % (0.0-1.0); %Monocytes 9.7 % (0.0-10.0); %Neutrophils 56.7 % (42.0-75.0); Hematocrit 24.3 % (36.0-47.0); Hemoglobin 7.7 g/dL (12.0-16.0); Mean Corpuscular HGB CONC 31.7 g/dL (32.0-36.0); Mean Corpuscular Volume 94.6 fl (78.0-98.0); Mean Platelet Volume 10.2 fL (7.4-10.4); Platelet Count 187 10x3/uL (130-400); RBC Distribution Width 13.9 % (11.5-14.5); Red Blood Cell (RBC) Count 2.57 mill/uL (4.20-5.40); White Blood Cell (WBC) Count 5.3 10x3/uL (4.8-10.8)
[2023-06-26 07:07] LABS: Anion Gap 10 mmol/L (10-20); BUN (Urea Nitrogen) 23 mg/dL (9.8-20.1); Calc. Creatinine Clearance 50 mL/min (70-130); Calcium 8.5 mg/dL (7.8-10.44); Carbon Dioxide 23 mmol/L (23-31); Chloride 108 mmol/L (98-107); Estimated GFR 36; Glucose 86 mg/dL (83-110); Potassium 4.1 mmol/L (3.5-5.1); Sodium 137 mmol/L (136-145)
[2023-06-26] MEDS: Empagliflozin 10 MG TAB PO SCH (08:56)
[2023-06-26 11:53] VITALS: TEMP 98.3
[2023-06-26 12:11] VITALS: BP 128/67
== END 2023-06-26 14:39 | disposition home or self-care (01) | DRG 291 ==
LOC: 2NO 06-24 00:08 → OBSVTOIN 06-24 09:18
PROVIDERS: ADMIT Internal Medicine; ATTEND Internal Medicine
DX: I11.0 Hypertensive heart disease with heart failure (principal); I50.33 Acute on chronic diastolic (congestive) heart failure; N17.9 Acute kidney failure, unspecified; E87.5 Hyperkalemia; M06.9 Rheumatoid arthritis, unspecified; M10.9 Gout, unspecified; E66.9 Obesity, unspecified; W19.XXXA Unspecified fall, initial encounter; F17.210 Nicotine dependence, cigarettes, uncomplicated; E78.2 Mixed hyperlipidemia; D64.9 Anemia, unspecified; E11.40 Type 2 diabetes mellitus with diabetic neuropathy, unspecified; M19.90 Unspecified osteoarthritis, unspecified site; S92.402A Displaced unspecified fracture of left great toe, initial encounter for closed fracture; Z79.82 Long term (current) use of aspirin; Z79.899 Other long term (current) drug therapy; Z98.890 Other specified postprocedural states; Z90.710 Acquired absence of both cervix and uterus; Z68.33 Body mass index [BMI] 33.0-33.9, adult
CPT/HCPCS: 36415; 36416; 80048; 82728; 83540; 83550; 83735; 85025; 93306; 93970; J1644; J1940

== ENCOUNTER 2024-04-30 20:39 | Inpatient (IN) | payer MEDICARE ==
[2024-04-30 21:13] LABS: #Basophils Less than 0.03 10x3/uL (0.0-0.2); #Eosinophils Less than 0.03 10x3/uL (0.0-0.7); %Basophils 0.1 % (0.0-1.0); %Lymphocytes 5.6 % (21.0-51.0); %Monocytes 4.7 % (0.0-10.0); %Neutrophils 83.7 % (42.0-75.0); Hematocrit 10.6 % (36.0-47.0); Hemoglobin 3.2 g/dL (12.0-16.0); Mean Corpuscular HGB CONC 30.2 g/dL (32.0-36.0); Mean Corpuscular Volume 112.8 fL (78.0-98.0); Platelet Count 213 10x3/uL (130-400); RBC Distribution Width 16.8 % (11.5-14.5); Red Blood Cell (RBC) Count 0.94 mill/uL (4.20-5.40)
[2024-04-30 21:31] LABS: ALT (SGPT) 6 U/L (8-55); AST (SGOT) 6 U/L (5-34); Albumin 2.5 g/dL (3.4-4.8); Alkaline Phosphatase 64 U/L (40-110); Anion Gap 16 mmol/L (10-20); BUN (Urea Nitrogen) 107 mg/dL (9.8-20.1); Bilirubin, Total 0.3 mg/dL (0.2-1.2); Calc. Creatinine Clearance 0 mL/min (70-130); Calcium 9.7 mg/dL (7.8-10.44); Carbon Dioxide 12 mmol/L (23-31); Chloride 113 mmol/L (98-107); Estimated GFR 21; Glucose 140 mg/dL (83-110); Potassium 6.9 mmol/L (3.5-5.1); Protein, Total 5.5 g/dL (5.8-8.1); Sodium 134 mmol/L (136-145)
[2024-04-30] MEDS ORDERED: Dextrose 10% in Water 250 ML ONE (21:34)
[2024-04-30] MEDS ORDERED: CALCIUM GLUC 1 GM/NS 50 ML IV Bag ONE (21:34)
[2024-04-30] MEDS ORDERED: Insulin Regular, Human 100 UNIT/ML 10 ML VIAL ONE (21:34)
[2024-04-30 21:52] LABS: Lipase 30 U/L (8-78); Magnesium 1.3 mg/dL (1.6-2.6)
[2024-04-30 21:53] LABS: Acetaminophen Less than 10 mcg/mL (Less than 10); Alcohol Less than 10.0 mg/dL (Less than 10); Salicylate Less than 8.0 mg/dL (Less than 8.0)
[2024-04-30 22:00] LABS: Troponin I Less than 0.010 ng/mL (< 0.028)
[2024-04-30 22:02] LABS: Anisocytosis MODERATE=16-30 cells HPF (0-5); Hypochromia SLIGHT = 6-15 cells HPF (0-5); Macrocytosis SLIGHT = 6-15 cells HPF (0-5); Platelet Adequacy Comment Platelets Normal; Polychromasia MODERATE = 3-4 cells HPF (0-2); Schistocytes SLIGHT = 2-5 cells HPF (0-1); Tear Drops SLIGHT = 2-5 cells HPF (0-1)
[2024-04-30 23:13] LABS: INR-International Normal Ratio 1.3; Prothrombin Time 16.2 sec (12.0-14.7)
[2024-04-30] MEDS ORDERED: fentaNYL 50 mcg/mL 1 mL Vial ONE (23:35)
[2024-04-30 23:45] LABS: Anion Gap 14 mmol/L (10-20); BUN (Urea Nitrogen) 102 mg/dL (9.8-20.1); Calc. Creatinine Clearance 0 mL/min (70-130); Calcium 9.3 mg/dL (7.8-10.44); Carbon Dioxide 12 mmol/L (23-31); Chloride 114 mmol/L (98-107); Estimated GFR 22; Glucose 146 mg/dL (83-110); Potassium 6.1 mmol/L (3.5-5.1); Sodium 134 mmol/L (136-145)
[2024-05-01 01:23] LABS: PTT 23.9 sec (22.9-36.1)
[2024-05-01] MEDS ORDERED: Calcium Carbonate 500 MG ChewTAB PO PRN (02:34)
[2024-05-01] MEDS ORDERED: Ondansetron PF 4 MG/2 ML Vial IVP PRN (02:34)
[2024-05-01] MEDS ORDERED: Ondansetron ODT 4 MG TAB PO PRN (02:34)
[2024-05-01 02:48] LABS: Bacteria/HPF 4+ HPF (None Seen); Bilirubin Negative (Negative); Blood, Urine Trace (Negative); CAUTI Indications for Culture Alt mental st,lethar; Clarity Turbid (Clear); Glucose, Urine (Dipstick) Normal (Negative); Ketone, Urine Negative (Negative); Leukocyte 500 Leu/uL (Negative); Nitrite Negative (Negative); Protein, Urine (Dipstick) 20 mg/dL (Neg-Trace); Specific Gravity, Urine 1.014 (1.002-1.036); Squamous Epithelial 0-3 HPF (0-3); Urobilinogen Normal mg/dL (Less than 2); WBC/HPF Greater than 50 HPF (0-3)
[2024-05-01 02:53] LABS: Urine Culture Reflex Yes Yes
[2024-05-01] MEDS ORDERED: Thiamine HCl 200 MG/2 ML VIAL ONE (02:53)
[2024-05-01 02:59] LABS: Amphetamine Not Detected (NotDetected); Barbiturates Screen Not Detected (NotDetected); Benzodiazepine Screen Not Detected (NotDetected); Cocaine Metabolite Screen Not Detected (NotDetected); Methadone Not Detected (NotDetected); Methamphetamine Not Detected (NotDetected); Opiate Screen Detected (NotDetected); Oxycodone Screen Not Detected (NotDetected); Phencyclidine (PCP) Not Detected (NotDetected); THC/Cannabinoid Screen Not Detected (NotDetected); Tricyclic Screen Detected (NotDetected)
[2024-05-01 03:45] VITALS: BMI 29.8
[2024-05-01] MEDS: LOKELMA 10 GM PACKET PO SCH ×4 (04:19→18:42)
[2024-05-01] MEDS ORDERED: Albuterol 2.5 MG (0.5 mL) NEB ONE (04:23)
[2024-05-01] MEDS: Sodium Bicarbonate 150 MEQ in Dextrose 5% in Water 1,000 ML IV SCH (04:27)
[2024-05-01 05:10] LABS: Hematocrit 30.9 % (36.0-47.0); Mean Corpuscular HGB CONC 32.4 g/dL (32.0-36.0); Mean Corpuscular Hemoglobin 29.6 pg (27.0-31.0); Mean Corpuscular Volume 91.4 fL (78.0-98.0); Mean Platelet Volume 9.2 fL (7.4-10.4); Platelet Count 160 10x3/uL (130-400); RBC Distribution Width 19.3 % (11.5-14.5); Red Blood Cell (RBC) Count 3.38 mill/uL (4.20-5.40)
[2024-05-01 05:38] LABS: Burr Cells SLIGHT = 2-5 cells HPF (0-1); Lymphocytes 5 % (21-51); Metamyelocyte 1 % (0-0); Monocytes 2 % (0-10); Neutrophil 92 % (42-75); Nucleated RBC (Manual Ct) 1 % (0); Platelet Adequacy Comment Platelets Normal; Polychromasia SLIGHT = 2-3 cells HPF (0-2)
[2024-05-01 07:14] LABS: Sodium 134 mmol/L (136-145)
[2024-05-01 07:16] LABS: Chloride 113 mmol/L (98-107); Potassium 6.5 mmol/L (3.5-5.1)
[2024-05-01 07:18] LABS: Calcium 9.3 mg/dL (7.6-10.4)
[2024-05-01 07:29] LABS: Glucose 106 mg/dL (83-110)
[2024-05-01 07:30] LABS: Anion Gap 18 mmol/L (10-20); Carbon Dioxide 11 mmol/L (23-31)
[2024-05-01 08:04] LABS: Calc. Creatinine Clearance 29 mL/min (70-130); Estimated GFR 22
[2024-05-01 08:22] LABS: BUN (Urea Nitrogen) 101 mg/dL (9.8-20.1)
[2024-05-01] MEDS: Famotidine/PF 20 mg/2ml Vial SLOW IVP SCH (10:28)
[2024-05-01] MEDS: Acetaminophen 325 MG TAB PO SCH (10:28)
[2024-05-01] MEDS: Famotidine 20 MG TAB PO SCH (10:30)
[2024-05-01] MEDS: Lactulose 20 GM (30 mL) UDCUP PO SCH (10:30)
[2024-05-01] MEDS: cefTRIAXone\\ROCEPHIN 1 GM in Sodium Chloride 0.9% 100 ML IVPB SCH (10:31)
[2024-05-01 10:46] LABS: Hemoglobin 8.5 g/dL (12.0-16.0)
[2024-05-01] MEDS: Acetaminophen/Codeine 30-300mg Tablet PO PRN (14:51)
[2024-05-01 16:39] LABS: Hematocrit 25.5 % (36.0-47.0); Hemoglobin 8.4 g/dL (12.0-16.0)
[2024-05-01] MEDS: Albumin 25% 25 GM (100 mL) BOT IVPB SCH (17:15)
[2024-05-01 17:28] LABS: Anion Gap 16 mmol/L (10-20); BUN (Urea Nitrogen) 105 mg/dL (9.8-20.1); Calc. Creatinine Clearance 29 mL/min (70-130); Calcium 8.7 mg/dL (7.8-10.44); Carbon Dioxide 12 mmol/L (23-31); Chloride 112 mmol/L (98-107); Estimated GFR 22; Glucose 152 mg/dL (83-110); Potassium 5.9 mmol/L (3.5-5.1); Sodium 134 mmol/L (136-145)
[2024-05-01] MEDS ORDERED: Cyanocobalamin 1000 MCG/ML VIAL IM SCH (17:30)
[2024-05-01] MEDS: Pantoprazole 40 MG VIAL IVP SCH (17:47)
[2024-05-01] MEDS: Sodium Chloride 0.9% 1,000 ML IV SCH (18:17)
[2024-05-01] MEDS: Multivitamins, Adult 10 ML, Folic Acid 1 MG, Thiamine HCl 100 MG in Dextrose 5 %-0.45 %... IV SCH (18:24)
[2024-05-01 18:40] LABS: #Basophils Less than 0.03 10x3/uL (0.0-0.2); #Eosinophils Less than 0.03 10x3/uL (0.0-0.7); %Basophils 0.1 % (0.0-1.0); %Lymphocytes 7.3 % (21.0-51.0); %Monocytes 8.2 % (0.0-10.0); %Neutrophils 77.7 % (42.0-75.0); Hematocrit 22.7 % (36.0-47.0); Hemoglobin 7.4 g/dL (12.0-16.0); Mean Corpuscular HGB CONC 32.6 g/dL (32.0-36.0); Mean Corpuscular Hemoglobin 27.9 pg (27.0-31.0); Mean Corpuscular Volume 85.7 fL (78.0-98.0); Mean Platelet Volume 9.8 fL (7.4-10.4); Platelet Count 189 10x3/uL (130-400); Red Blood Cell (RBC) Count 2.65 mill/uL (4.20-5.40)
[2024-05-01 18:55] LABS: Anion Gap 17 mmol/L (10-20); BUN (Urea Nitrogen) 100 mg/dL (9.8-20.1); Calc. Creatinine Clearance 28 mL/min (70-130); Calcium 9.5 mg/dL (7.8-10.44); Carbon Dioxide 15 mmol/L (23-31); Chloride 111 mmol/L (98-107); Estimated GFR 21; Glucose 132 mg/dL (83-110); Potassium 5.5 mmol/L (3.5-5.1); Sodium 137 mmol/L (136-145)
[2024-05-01 18:59] LABS: Anisocytosis SLIGHT = 6-15 cells HPF (0-5); Burr Cells SLIGHT = 2-5 cells HPF (0-1); Platelet Adequacy Comment Platelets Normal; Polychromasia SLIGHT = 2-3 cells HPF (0-2)
[2024-05-01 22:37] LABS: Hemoglobin 7.1 g/dL (12.0-16.0)
[2024-05-01 22:57] LABS: Phosphorus 2.5 mg/dL (2.3-4.7)
[2024-05-01 23:00] LABS: Anion Gap 15 mmol/L (10-20); BUN (Urea Nitrogen) 94 mg/dL (9.8-20.1); Calc. Creatinine Clearance 30 mL/min (70-130); Carbon Dioxide 13 mmol/L (23-31); Chloride 113 mmol/L (98-107); Estimated GFR 23; Glucose 130 mg/dL (83-110); Magnesium 1.1 mg/dL (1.6-2.6); Potassium 5.1 mmol/L (3.5-5.1); Sodium 136 mmol/L (136-145)
[2024-05-01] MEDS ORDERED: Magnesium Sulfate 4 GM in Sodium Chloride 0.9% 250 ML 250 ML IVPB SCH (23:30)
[2024-05-02] MEDS: Sodium Bicarb 50 MEQ/50 ML Abboject 8.4% SYRINGE IVP SCH (00:14)
[2024-05-02] MEDS: Magnesium Sulfate In Water 4 GM in Premix 1 BAG IVPB SCH (00:14)
[2024-05-02] MEDS: Morphine 2 MG/ML VIAL SLOW IVP SCH (01:04)
[2024-05-02] MEDS: Pantoprazole 80 MG, Admixture Fee 1 EACH in Sodium Chloride 0.9% 100 ML IVPB SCH (04:11)
[2024-05-02 04:53] LABS: Anion Gap 14 mmol/L (10-20); BUN (Urea Nitrogen) 87 mg/dL (9.8-20.1); Calc. Creatinine Clearance 32 mL/min (70-130); Carbon Dioxide 16 mmol/L (23-31); Chloride 113 mmol/L (98-107); Estimated GFR 24; Glucose 130 mg/dL (83-110); Potassium 4.1 mmol/L (3.5-5.1); Sodium 139 mmol/L (136-145)
[2024-05-02 05:11] LABS: Hematocrit 22.9 % (36.0-47.0); Hemoglobin 7.7 g/dL (12.0-16.0); Mean Corpuscular HGB CONC 33.6 g/dL (32.0-36.0); Mean Corpuscular Hemoglobin 27.9 pg (27.0-31.0); Platelet Count 160 10x3/uL (130-400); RBC Distribution Width 23.6 % (11.5-14.5); Red Blood Cell (RBC) Count 2.76 mill/uL (4.20-5.40)
[2024-05-02 06:41] LABS: Anisocytosis SLIGHT = 6-15 cells HPF (0-5); Band 3 % (5-11); Elliptocytes SLIGHT = 2-5 cells HPF (0-1); Lymphocytes 10 % (21-51); Macrocytosis SLIGHT = 6-15 cells HPF (0-5); Monocytes 2 % (0-10); Myelocyte 1 % (0-0); Neutrophil 84 % (42-75); Nucleated RBC (Manual Ct) 4 % (0); Platelet Adequacy Comment Platelets Normal; Polychromasia SLIGHT = 2-3 cells HPF (0-2)
[2024-05-02] MEDS ORDERED: VANCOMYCIN IVPB PRN (07:56)
[2024-05-02] MEDS ORDERED: Vancomycin Dose by Levels Sliding Scale (Wt 71-99) FS SCH (08:00)
[2024-05-02] MEDS ORDERED: Vancomycin 1 GM in Premix 1 BAG IVPB SCH (09:00)
[2024-05-02] MEDS ORDERED: Lidocaine 1% PF 5 ML VIAL ONE (09:22)
[2024-05-02] MEDS ORDERED: Ketamine In 0.9 % NaCl 50 MG/5 ML SYRINGE ONE (09:23)
[2024-05-02] MEDS ORDERED: Rocuronium Bromide 10 MG/ML (10ML VIAL) ONE (09:39)
[2024-05-02] MEDS ORDERED: Labetalol HCl 100 MG/20 ML VIAL ONE (09:39)
[2024-05-02] MEDS ORDERED: EPINEPHrine 1 MG/10 ML Abboject SYRINGE ONE (09:41)
[2024-05-02] MEDS ORDERED: SUGAMMADEX SODIUM 200 MG/2 ML VIAL ONE ×2 (09:46→09:47)
[2024-05-02] MEDS ORDERED: Ondansetron PF 4 MG/2 ML Vial ONE (09:47)
[2024-05-02] MEDS: Propofol 1,000 MG/100 ML VIAL IV PRN (10:26)
[2024-05-02] MEDS ORDERED: Ventilator Sedation Protocol 1 EACH FS PRN (10:27)
[2024-05-02] MEDS ORDERED: Fentanyl BOLUS 250 ML IVPB PRN (10:45)
[2024-05-02] MEDS ORDERED: Propofol BOLUS 1,000 MG/100 ML VIAL IV PRN (10:45)
[2024-05-02] MEDS: Vancomycin (BATCH) 1.75 GM in Premix 1 BAG IVPB SCH (11:02)
[2024-05-02 11:40] LABS: Hematocrit 24.1 % (36.0-47.0); Hemoglobin 8.1 g/dL (12.0-16.0)
[2024-05-02] MEDS: Lorazepam 2 MG/ML VIAL SLOW IVP PRN (11:50)
[2024-05-02] MEDS: Propofol 1,000 MG/100 ML VIAL IV ONE (13:12)
[2024-05-02] MEDS: Morphine 2 MG/ML VIAL SLOW IVP PRN (13:18)
[2024-05-02] MEDS: Fentanyl CADD 100 ML IV SCH (13:57)
[2024-05-02 14:09] LABS: Magnesium 2.2 mg/dL (1.6-2.6)
[2024-05-02 17:48] LABS: Hematocrit 24.9 % (36.0-47.0); Hemoglobin 8.5 g/dL (12.0-16.0)
[2024-05-03 04:39] LABS: Hematocrit 21.3 % (36.0-47.0); Hemoglobin 7.3 g/dL (12.0-16.0); Mean Corpuscular HGB CONC 34.3 g/dL (32.0-36.0); Mean Corpuscular Hemoglobin 28.4 pg (27.0-31.0); Mean Corpuscular Volume 82.9 fL (78.0-98.0); Mean Platelet Volume 9.3 fL (7.4-10.4); Platelet Count 101 10x3/uL (130-400); Red Blood Cell (RBC) Count 2.57 mill/uL (4.20-5.40)
[2024-05-03 05:09] LABS: Anisocytosis SLIGHT = 6-15 cells HPF (0-5); Band 5 % (5-11); Burr Cells MODERATE= 6-15 cells HPF (0-1); Metamyelocyte 2 % (0-0); Monocytes 5 % (0-10); Myelocyte 1 % (0-0); Neutrophil 87 % (42-75); Platelet Adequacy Comment Platelets Decreased; Poikilocytosis SLIGHT = 6-15 cells HPF (0-5); Polychromasia SLIGHT = 2-3 cells HPF (0-2); Schistocytes SLIGHT = 2-5 cells HPF (0-1); Smudge Cells 25.5 %
[2024-05-03 06:35] LABS: ALT (SGPT) 7 U/L (8-55); AST (SGOT) 16 U/L (5-34); Albumin 2.8 g/dL (3.4-4.8); Alkaline Phosphatase 43 U/L (40-110); Anion Gap 12 mmol/L (10-20); BUN (Urea Nitrogen) 69 mg/dL (9.8-20.1); Bilirubin, Total 0.9 mg/dL (0.2-1.2); Calc. Creatinine Clearance 37 mL/min (70-130); Calcium 8.7 mg/dL (7.8-10.44); Carbon Dioxide 14 mmol/L (23-31); Chloride 115 mmol/L (98-107); Estimated GFR 28; Globulin 1.7 g/dL (2.4-3.5); Glucose 113 mg/dL (83-110); Magnesium 1.9 mg/dL (1.6-2.6); Phosphorus 1.8 mg/dL (2.3-4.7); Potassium 3.1 mmol/L (3.5-5.1); Protein, Total 4.5 g/dL (5.8-8.1); Sodium 138 mmol/L (136-145)
[2024-05-03 08:53] LABS: Vancomycin, Trough 21.3 ug/mL
[2024-05-03] MEDS: Albumin 25% 25 GM (100 mL) BOT IVPB SCH (09:39)
[2024-05-03] MEDS: Potassium Chloride 40 MEQ in Premix 1 BAG IVPB SCH (09:56)
[2024-05-03 15:31] LABS: Hematocrit 22.6 % (36.0-47.0); Hemoglobin 7.5 g/dL (12.0-16.0); Platelet Count 96 10x3/uL (130-400)
[2024-05-03] MEDS: Cefepime 1 GM in Sodium Chloride 0.9% 100 ML IVPB SCH (15:40)
[2024-05-03] MEDS ORDERED: Vancomycin HCl 500 MG in Sodium Chloride 0.9% 100 ML IVPB SCH (21:00)
[2024-05-03] MEDS ORDERED: Vancomycin HCl 500 MG VIAL IVPB SCH (21:00)
[2024-05-03] MEDS: Vancomycin HCl 500 MG in Sodium Chloride 0.9% 100 ML IVPB SCH (22:40)
[2024-05-03] MEDS: Dexmedetomidine In 0.9 % NaCl 100 ML IVPB SCH (23:01)
[2024-05-04 05:32] LABS: ALT (SGPT) 5 U/L (8-55); AST (SGOT) 15 U/L (5-34); Albumin 3.9 g/dL (3.4-4.8); Alkaline Phosphatase 36 U/L (40-110); Anion Gap 15 mmol/L (10-20); BUN (Urea Nitrogen) 66 mg/dL (9.8-20.1); Bilirubin, Total 0.6 mg/dL (0.2-1.2); Calc. Creatinine Clearance 34 mL/min (70-130); Calcium 9.6 mg/dL (7.8-10.44); Carbon Dioxide 13 mmol/L (23-31); Chloride 114 mmol/L (98-107); Estimated GFR 25; Globulin 1.4 g/dL (2.4-3.5); Glucose 92 mg/dL (83-110); Magnesium 1.7 mg/dL (1.6-2.6); Potassium 3.8 mmol/L (3.5-5.1); Protein, Total 5.3 g/dL (5.8-8.1); Sodium 138 mmol/L (136-145)
[2024-05-04 06:16] LABS: Hematocrit 19.5 % (36.0-47.0); Hemoglobin 6.6 g/dL (12.0-16.0); Mean Corpuscular HGB CONC 33.8 g/dL (32.0-36.0); Mean Corpuscular Hemoglobin 27.8 pg (27.0-31.0); Mean Corpuscular Volume 82.3 fL (78.0-98.0); Platelet Count 66 10x3/uL (130-400); RBC Distribution Width 24.2 % (11.5-14.5); Red Blood Cell (RBC) Count 2.37 mill/uL (4.20-5.40)
[2024-05-04 07:17] LABS: Anisocytosis MODERATE=16-30 cells HPF (0-5); Burr Cells SLIGHT = 2-5 cells HPF (0-1); Elliptocytes SLIGHT = 2-5 cells HPF (0-1); Eosinophils 4 % (0-10); Lymphocytes 9 % (21-51); Macrocytosis SLIGHT = 6-15 cells HPF (0-5); Monocytes 7 % (0-10); Neutrophil 80 % (42-75); Nucleated RBC (Manual Ct) 6 % (0); Platelet Adequacy Comment Platelets Decreased; Polychromasia SLIGHT = 2-3 cells HPF (0-2); Smudge Cells 6.9 %
[2024-05-04 09:11] LABS: CO2 Tension 26.3 mmHg (35.0-45.0); Carboxyhemoglobin (COHb) 0.5 gm% (0.0-3.0); Hematocrit-ABG 25 % (36.0-47.0); Hemoglobin (Hb) 8.5 g/dL (12.0-16.0); O2 Tension (PaO2), arterial 116.8 mmHg (> 70.0); Potassium - ABG Lab 3.55 mmol/L (3.70-5.30); pH, Arterial 7.354 (7.35-7.45)
[2024-05-04 09:18] LABS: ALV-art Gradient 64.225 mmHg (0-20); Puncture Site Right Radial artery
[2024-05-04] MEDS: Sodium Chloride 0.45% 1,000 ML IV SCH (09:36)
[2024-05-04] MEDS: Haloperidol Lactate 5 MG/ML VIAL IM SCH (09:39)
[2024-05-04 15:37] LABS: Hematocrit 28.7 % (36.0-47.0); Hemoglobin 9.7 g/dL (12.0-16.0); Platelet Count 57 10x3/uL (130-400)
[2024-05-05 05:04] LABS: Hematocrit 27.6 % (36.0-47.0); Hemoglobin 9.4 g/dL (12.0-16.0); Mean Corpuscular HGB CONC 34.1 g/dL (32.0-36.0); Mean Corpuscular Hemoglobin 28.9 pg (27.0-31.0); Mean Corpuscular Volume 84.9 fL (78.0-98.0); Platelet Count 43 10x3/uL (130-400); Red Blood Cell (RBC) Count 3.25 mill/uL (4.20-5.40)
[2024-05-05 05:30] LABS: Anion Gap 11 mmol/L (10-20); BUN (Urea Nitrogen) 63 mg/dL (9.8-20.1); Calc. Creatinine Clearance 36 mL/min (70-130); Carbon Dioxide 12 mmol/L (23-31); Chloride 114 mmol/L (98-107); Estimated GFR 27; Glucose 142 mg/dL (83-110); Potassium 3.4 mmol/L (3.5-5.1); Sodium 134 mmol/L (136-145)
[2024-05-05 05:35] LABS: Calcium 8.3 mg/dL (7.8-10.44)
[2024-05-05 05:53] LABS: Band 2 % (5-11); Burr Cells MODERATE= 6-15 cells HPF (0-1); Eosinophils 1 % (0-10); Lymphocytes 8 % (21-51); Metamyelocyte 1 % (0-0); Monocytes 6 % (0-10); Neutrophil 82 % (42-75); Nucleated RBC (Manual Ct) 4 % (0); Platelet Adequacy Comment Platelets Decreased; Poikilocytosis SLIGHT = 6-15 cells HPF (0-5); Polychromasia SLIGHT = 2-3 cells HPF (0-2); Smudge Cells 12.9 %
[2024-05-05] MEDS: D5 IV SCH ×2 (11:45→19:50)
[2024-05-05] MEDS: SODIUM BICARBONATE IV SCH ×2 (11:45→19:50)
[2024-05-05] MEDS: 1/4 NS IV SCH (11:45)
[2024-05-05] MEDS: POTASSIUM CHLORIDE IV SCH (11:45)
[2024-05-05] MEDS: Haloperidol Lactate 5 MG/ML VIAL IM SCH (14:33)
[2024-05-05 17:32] LABS: Actual Bicarbonate (HCO3a) 14.3 mEq/L (22-28)
[2024-05-05] MEDS: D5 1/4 NS w/20 mEq KCL 1,000 ML IV SCH (19:50)
[2024-05-05] MEDS: KCL IV SCH (19:50)
[2024-05-05] MEDS: 1/4 NS W IV SCH (19:50)
[2024-05-06 04:03] LABS: Anion Gap 12 mmol/L (10-20); BUN (Urea Nitrogen) 57 mg/dL (9.8-20.1); Calc. Creatinine Clearance 34 mL/min (70-130); Calcium 8.9 mg/dL (7.8-10.44); Carbon Dioxide 15 mmol/L (23-31); Chloride 116 mmol/L (98-107); Estimated GFR 25; Glucose 92 mg/dL (83-110); Potassium 3.5 mmol/L (3.5-5.1); Sodium 139 mmol/L (136-145)
[2024-05-06 04:33] LABS: Hematocrit 26.9 % (36.0-47.0); Hemoglobin 9.2 g/dL (12.0-16.0); Mean Corpuscular HGB CONC 34.2 g/dL (32.0-36.0); Mean Corpuscular Hemoglobin 28.8 pg (27.0-31.0); Mean Corpuscular Volume 84.3 fL (78.0-98.0); Platelet Count 50 10x3/uL (130-400); RBC Distribution Width 22.5 % (11.5-14.5); Red Blood Cell (RBC) Count 3.19 mill/uL (4.20-5.40)
[2024-05-06] MEDS: Lorazepam 2 MG/ML VIAL ONE (04:48)
[2024-05-06] MEDS: Lorazepam 2 MG/ML VIAL SLOW IVP SCH (04:49)
[2024-05-06 06:19] LABS: Anisocytosis SLIGHT = 6-15 cells HPF (0-5); Band 1 % (5-11); Elliptocytes SLIGHT = 2-5 cells HPF (0-1); Hypochromia SLIGHT = 6-15 cells HPF (0-5); Lymphocytes 3 % (21-51); Macrocytosis SLIGHT = 6-15 cells HPF (0-5); Monocytes 8 % (0-10); Neutrophil 89 % (42-75); Platelet Adequacy Comment Platelets Decreased; Poikilocytosis SLIGHT = 6-15 cells HPF (0-5); Polychromasia SLIGHT = 2-3 cells HPF (0-2); Smudge Cells 1.9 %
[2024-05-06 09:13] LABS: Base Excess (BEa) -9.6 mEq/L (-2.0 to +3.0); CO2 Tension 28.2 mmHg (35.0-45.0); Calcium, Ionized (arterial) 1.26 mmol/L (1.12-1.30); Hematocrit-ABG 29 % (36.0-47.0); O2 Tension (PaO2), arterial 74.3 mmHg (> 70.0); pH, Arterial 7.342 (7.35-7.45)
[2024-05-06 09:14] LABS: Actual Bicarbonate (HCO3a) 14.9 mEq/L (22-28); Puncture Site Left Radial artery
[2024-05-06] MEDS: Sodium Bicarb 50 MEQ/50 ML Abboject 8.4% SYRINGE IVP SCH (09:45)
[2024-05-06] MEDS: Furosemide 100 MG (10 mL) VIAL SLOW IVP SCH (09:45)
[2024-05-06] MEDS: Ipratropium/Albuterol 3 ML NEB NEB SCH (11:17)
[2024-05-06] MEDS: Pantoprazole 40 MG VIAL IVP SCH (20:01)
[2024-05-06] MEDS: OLANZapine 10 MG VIAL IM SCH (20:08)
[2024-05-06] MEDS: Sterile Water 10 ML ONE (20:48)
[2024-05-07 04:29] LABS: Eosinophils 1 % (0-10); Hypochromia SLIGHT = 6-15 cells HPF (0-5); Lymphocytes 4 % (21-51); Monocytes 1 % (0-10); Neutrophil 92 % (42-75); Platelet Adequacy Comment Platelets Decreased; Polychromasia SLIGHT = 2-3 cells HPF (0-2); Reactive Lymphocytes 2 % (0-10); Target Cells SLIGHT = 2-5 cells HPF (0-1)
[2024-05-07 04:32] LABS: Anion Gap 15 mmol/L (10-20); BUN (Urea Nitrogen) 59 mg/dL (9.8-20.1); Calc. Creatinine Clearance 36 mL/min (70-130); Calcium 8.6 mg/dL (7.8-10.44); Carbon Dioxide 20 mmol/L (23-31); Chloride 111 mmol/L (98-107); Estimated GFR 27; Glucose 124 mg/dL (83-110); Potassium 4.5 mmol/L (3.5-5.1); Sodium 141 mmol/L (136-145)
[2024-05-07 04:40] LABS: Hematocrit 25.4 % (36.0-47.0); Hemoglobin 8.9 g/dL (12.0-16.0); Mean Corpuscular Hemoglobin 29.3 pg (27.0-31.0); Mean Corpuscular Volume 83.6 fL (78.0-98.0); Platelet Count 67 10x3/uL (130-400); RBC Distribution Width 22.6 % (11.5-14.5); Red Blood Cell (RBC) Count 3.04 mill/uL (4.20-5.40)
[2024-05-07 09:29] LABS: Actual Bicarbonate (HCO3v) 21.9 mEq/L (22-28); Base Excess -2.3 mEq/L (-2.0 to +3.0); Calcium, Ionized (venous) 1.16 mmol/L (1.16-1.32); Chloride (VBG) 107 mmol/L (98-106); Hematocrit-VBG 27 % (36.0-47.0); Hemoglobin (Hb) 9.3 g/dL (11.7-16.1); Potassium (VBG) 4.28 mmol/L (3.70-5.30); Sodium 139 mmol/L (133-146); pH (venous) 7.412 (7.32-7.43)
[2024-05-07] MEDS ORDERED: Sterile Water 10 ML VIAL FS PRN (15:30)
[2024-05-07] MEDS: OLANZapine 10 MG VIAL IM SCH (15:37)
[2024-05-07] MEDS: Morphine 2 MG/ML VIAL SLOW IVP PRN (19:46)
[2024-05-08 04:23] LABS: #Basophils 0.03 10x3/uL (0.0-0.2); %Basophils 0.1 % (0.0-1.0); %Eosinophils 0.3 % (0.0-10.0); %Lymphocytes 4.1 % (21.0-51.0); %Monocytes 6.7 % (0.0-10.0); %Neutrophils 86.7 % (42.0-75.0); Hematocrit 25.1 % (36.0-47.0); Hemoglobin 8.5 g/dL (12.0-16.0); Mean Corpuscular HGB CONC 33.9 g/dL (32.0-36.0); Mean Corpuscular Hemoglobin 28.8 pg (27.0-31.0); Mean Corpuscular Volume 85.1 fL (78.0-98.0); Platelet Count 58 10x3/uL (130-400); RBC Distribution Width 23.1 % (11.5-14.5); Red Blood Cell (RBC) Count 2.95 mill/uL (4.20-5.40)
[2024-05-08 04:25] LABS: INR-International Normal Ratio 1.5; Prothrombin Time 18.1 sec (12.0-14.7)
[2024-05-08 04:57] LABS: ALT (SGPT) 14 U/L (8-55); AST (SGOT) 13 U/L (5-34); Albumin 2.4 g/dL (3.4-4.8); Alkaline Phosphatase 99 U/L (40-110); Anion Gap 16 mmol/L (10-20); BUN (Urea Nitrogen) 57 mg/dL (9.8-20.1); Bilirubin, Total 0.9 mg/dL (0.2-1.2); Calc. Creatinine Clearance 35 mL/min (70-130); Calcium 8.5 mg/dL (7.8-10.44); Carbon Dioxide 23 mmol/L (23-31); Chloride 107 mmol/L (98-107); Estimated GFR 24; Globulin 2.4 g/dL (2.4-3.5); Glucose 115 mg/dL (83-110); Potassium 4.7 mmol/L (3.5-5.1); Protein, Total 4.8 g/dL (5.8-8.1); Sodium 141 mmol/L (136-145)
[2024-05-08 08:37] LABS: Iron 17 ug/dL (50-170); Iron Binding Capacity, Total 65 mcg/dL (265-497); Magnesium 1.2 mg/dL (1.6-2.6)
[2024-05-08 09:29] LABS: Phosphorus 2.5 mg/dL (2.3-4.7)
[2024-05-08] MEDS: Magnesium Sulfate In Water 4 GM in Premix 1 BAG IVPB SCH (10:53)
[2024-05-08] MEDS: Lactulose 20 GM (30 mL) UDCUP PO SCH (11:05)
[2024-05-08] MEDS: Albumin 25% 25 GM (100 mL) BOT IVPB SCH (11:06)
[2024-05-08] MEDS: Sodium Ferric Gluconate 250 MG in Sodium Chloride 0.9% 250 ML 250 ML IVPB SCH (11:34)
[2024-05-08 13:03] LABS: Bilirubin Negative (Negative); Blood, Urine 1+ (Negative); Clarity Turbid (Clear); Glucose, Urine (Dipstick) Normal (Negative); Ketone, Urine Negative (Negative); Leukocyte 500 Leu/uL (Negative); Nitrite Negative (Negative); Protein, Urine (Dipstick) 30 mg/dL (Neg-Trace); RBC/HPF 0-3 HPF (0-3); Specific Gravity, Urine 1.012 (1.002-1.036); Urobilinogen Normal mg/dL (Less than 2)
[2024-05-08 13:04] LABS: Creatinine, Urine 40.75 mg/dL (47-110)
[2024-05-08 13:15] LABS: Transitional Epithelial 0-3 HPF (None Seen)
[2024-05-08 13:16] LABS: Bacteria/HPF 1+ HPF (None Seen); WBC/HPF 21-50 HPF (0-3)
[2024-05-08] MEDS: Ipratropium/Albuterol 3 ML NEB NEB SCH (13:44)
[2024-05-08] MEDS: OLANZapine 10 MG VIAL IM PRN (14:39)
[2024-05-08] MEDS: ALPRAZolam 0.25 MG TAB PO PRN (20:25)
[2024-05-09 04:15] LABS: #Basophils Less than 0.03 10x3/uL (0.0-0.2); %Basophils 0.1 % (0.0-1.0); %Eosinophils 0.6 % (0.0-10.0); %Lymphocytes 5.7 % (21.0-51.0); %Monocytes 8.2 % (0.0-10.0); %Neutrophils 84.1 % (42.0-75.0); Hematocrit 22.1 % (36.0-47.0); Hemoglobin 7.3 g/dL (12.0-16.0); Mean Corpuscular Hemoglobin 28.9 pg (27.0-31.0); Mean Corpuscular Volume 87.4 fL (78.0-98.0); Platelet Count 58 10x3/uL (130-400); RBC Distribution Width 23.3 % (11.5-14.5); Red Blood Cell (RBC) Count 2.53 mill/uL (4.20-5.40)
[2024-05-09 04:24] LABS: Anion Gap 17 mmol/L (10-20); BUN (Urea Nitrogen) 53 mg/dL (9.8-20.1); Calc. Creatinine Clearance 34 mL/min (70-130); Calcium 9.4 mg/dL (7.8-10.44); Carbon Dioxide 21 mmol/L (23-31); Chloride 108 mmol/L (98-107); Estimated GFR 22; Glucose 89 mg/dL (83-110); Sodium 141 mmol/L (136-145)
[2024-05-09 08:41] LABS: Magnesium 2.2 mg/dL (1.6-2.6)
[2024-05-09 14:12] LABS: Hematocrit 24.2 % (36.0-47.0); Hemoglobin 7.9 g/dL (12.0-16.0)
[2024-05-09] MEDS: Sodium Bicarbonate Tab 325 MG TAB PO SCH (14:49)
[2024-05-09] MEDS: Albumin 25% 25 GM (100 mL) BOT IVPB SCH (23:21)
[2024-05-09] MEDS: Sterile Water 10 ML VIAL FS PRN (23:34)
[2024-05-10 04:58] LABS: #Basophils Less than 0.03 10x3/uL (0.0-0.2); %Basophils 0.1 % (0.0-1.0); %Eosinophils 0.4 % (0.0-10.0); %Monocytes 9.3 % (0.0-10.0); %Neutrophils 82.3 % (42.0-75.0); Hematocrit 22.8 % (36.0-47.0); Hemoglobin 7.3 g/dL (12.0-16.0); Mean Corpuscular Hemoglobin 28.5 pg (27.0-31.0); Mean Corpuscular Volume 89.1 fL (78.0-98.0); Platelet Count 68 10x3/uL (130-400); RBC Distribution Width 23.7 % (11.5-14.5); Red Blood Cell (RBC) Count 2.56 mill/uL (4.20-5.40)
[2024-05-10 05:20] LABS: Albumin 3.7 g/dL (3.4-4.8); Anion Gap 20 mmol/L (10-20); BUN (Urea Nitrogen) 57 mg/dL (9.8-20.1); BUN/Creatinine Ratio 24.15; Calc. Creatinine Clearance 33 mL/min (70-130); Calcium 10.1 mg/dL (7.8-10.44); Carbon Dioxide 17 mmol/L (23-31); Chloride 111 mmol/L (98-107); Estimated GFR 21; Glucose 76 mg/dL (83-110); Phosphorus 2.7 mg/dL (2.3-4.7); Potassium 4.5 mmol/L (3.5-5.1); Sodium 143 mmol/L (136-145)
[2024-05-10] MEDS: Spironolactone 100 MG TAB PO SCH (10:46)
[2024-05-10] MEDS: Torsemide 20 MG TAB PO SCH (10:47)
[2024-05-10] MEDS: Sodium Bicarbonate 150 MEQ in Sterile Water 1,000 ML IV SCH (10:47)
[2024-05-10] MEDS: Metoprolol Tartrate 25 MG TAB PO SCH ×2 (12:07→20:04)
[2024-05-10] MEDS ORDERED: Electrolyte Replacement Protocol FS PRN (12:45)
[2024-05-10] MEDS ORDERED: Electrolyte Replacement Protocol 1 EACH FS SCH (12:45)
[2024-05-10] MEDS: Folic Acid 1 MG TAB PO SCH ×2 (14:01→14:02)
[2024-05-10] MEDS: Thiamine HCl 200 MG/2 ML VIAL SLOW IVP SCH (14:01)
[2024-05-10] MEDS: Multivit, Therapeutic 1 TAB PO SCH ×2 (14:01→14:03)
[2024-05-10] MEDS: QUEtiapine 25 MG TAB PO SCH (20:04)
[2024-05-11] MEDS: Cefepime 1 GM VIAL ONE ×2 (04:48→17:11)
[2024-05-11 09:18] LABS: Albumin 3.6 g/dL (3.4-4.8); Anion Gap 21 mmol/L (10-20); BUN (Urea Nitrogen) 57 mg/dL (9.8-20.1); BUN/Creatinine Ratio 23.55; Calc. Creatinine Clearance 33 mL/min (70-130); Calcium 10.4 mg/dL (7.8-10.44); Carbon Dioxide 18 mmol/L (23-31); Chloride 109 mmol/L (98-107); Estimated GFR 21; Glucose 68 mg/dL (83-110); Phosphorus 2.6 mg/dL (2.3-4.7); Potassium 4.5 mmol/L (3.5-5.1); Sodium 143 mmol/L (136-145)
[2024-05-11 09:52] LABS: Hematocrit 19.6 % (36.0-47.0); Hemoglobin 6.3 g/dL (12.0-16.0); Mean Corpuscular HGB CONC 32.1 g/dL (32.0-36.0); Mean Corpuscular Hemoglobin 28.9 pg (27.0-31.0); Mean Corpuscular Volume 89.9 fL (78.0-98.0); Platelet Count 56 10x3/uL (130-400); RBC Distribution Width 23.6 % (11.5-14.5); Red Blood Cell (RBC) Count 2.18 mill/uL (4.20-5.40)
[2024-05-11 10:46] LABS: Eosinophils 0 % (0-10); Lymphocytes 7 % (21-51); Monocytes 9 % (0-10); Neutrophil 82 % (42-75)
[2024-05-11 10:47] LABS: Platelet Adequacy Comment PLT SIGNIFICANTLY DEC
[2024-05-11] MEDS: Torsemide 20 MG TAB PO SCH ×2 (12:08→12:14)
[2024-05-11] MEDS: Spironolactone 25 MG TAB PO SCH (12:08)
[2024-05-11] MEDS: Albumin 25% 25 GM (100 mL) BOT IVPB SCH (12:09)
[2024-05-11] MEDS: HYDROcodone/Acetaminophen 5/325 mg Tablet PO PRN (12:15)
[2024-05-11] MEDS: EPOETIN ALFA-EPBX (ESRD) 10,000 UNITS/ML VIAL SC SCH (14:26)
[2024-05-11] MEDS: Ipratropium/Albuterol 3 ML NEB NEB PRN (18:23)
[2024-05-11] MEDS: Metoprolol Tartrate 25 MG TAB PO SCH (20:23)
[2024-05-11 23:19] LABS: #Basophils Less than 0.03 10x3/uL (0.0-0.2); %Basophils 0.2 % (0.0-1.0); %Eosinophils 0.2 % (0.0-10.0); %Lymphocytes 6.2 % (21.0-51.0); %Monocytes 6.9 % (0.0-10.0); %Neutrophils 85.5 % (42.0-75.0); Hematocrit 19.4 % (36.0-47.0); Hemoglobin 6.2 g/dL (12.0-16.0); Mean Corpuscular Hemoglobin 28.3 pg (27.0-31.0); Mean Corpuscular Volume 88.6 fL (78.0-98.0); Platelet Count 55 10x3/uL (130-400); RBC Distribution Width 23.4 % (11.5-14.5); Red Blood Cell (RBC) Count 2.19 mill/uL (4.20-5.40)
[2024-05-11 23:35] LABS: Anion Gap 19 mmol/L (10-20); BUN (Urea Nitrogen) 61 mg/dL (9.8-20.1); Calc. Creatinine Clearance 27 mL/min (70-130); Calcium 9.8 mg/dL (7.8-10.44); Carbon Dioxide 20 mmol/L (23-31); Chloride 108 mmol/L (98-107); Estimated GFR 17; Glucose 79 mg/dL (83-110); Potassium 4.2 mmol/L (3.5-5.1); Sodium 143 mmol/L (136-145)
[2024-05-12] MEDS: Dextrose 50% Abboject 50 ML SYRINGE ONE (03:31)
[2024-05-12 10:06] LABS: #Basophils Less than 0.03 10x3/uL (0.0-0.2); #Eosinophils Less than 0.03 10x3/uL (0.0-0.7); %Basophils 0.2 % (0.0-1.0); %Eosinophils 0.2 % (0.0-10.0); %Lymphocytes 5.5 % (21.0-51.0); %Monocytes 6.4 % (0.0-10.0); %Neutrophils 86.5 % (42.0-75.0); Hematocrit 19.6 % (36.0-47.0); Hemoglobin 6.2 g/dL (12.0-16.0); Mean Corpuscular HGB CONC 31.6 g/dL (32.0-36.0); Mean Corpuscular Hemoglobin 28.6 pg (27.0-31.0); Mean Corpuscular Volume 90.3 fL (78.0-98.0); Platelet Count 62 10x3/uL (130-400); RBC Distribution Width 23.6 % (11.5-14.5); Red Blood Cell (RBC) Count 2.17 mill/uL (4.20-5.40)
[2024-05-12 10:19] LABS: Albumin 3.3 g/dL (3.4-4.8); Anion Gap 17 mmol/L (10-20); BUN (Urea Nitrogen) 64 mg/dL (9.8-20.1); BUN/Creatinine Ratio 21.62; Calc. Creatinine Clearance 26 mL/min (70-130); Carbon Dioxide 21 mmol/L (23-31); Chloride 108 mmol/L (98-107); Estimated GFR 16; Glucose 111 mg/dL (83-110); Potassium 4.1 mmol/L (3.5-5.1); Sodium 142 mmol/L (136-145)
[2024-05-12] MEDS ORDERED: Heparin 10,000 UNITS/ 10 ML VIAL ONE (10:30)
[2024-05-12 11:15] LABS: HBSAB Concentration Less than 8.00 mIU/mL; HBsAg Index 0.36 S/CO (0-0.99); Hep B Core Total Ab NONREACTIVE (NonReactive); Hep B Core Total Index 0.12 S/CO (0-0.79); Hep B Surf AB NONREACTIVE (NonReactive); Hep B Surf Ag NONREACTIVE S/CO (NonReactive); Hep C IgG Ab NONREACTIVE S/CO (NonReactive); Hep C Index 0.07 S/CO (0-0.79)
[2024-05-12] MEDS: Fentanyl CADD 100 ML ONE (19:24)
[2024-05-12] MEDS: Rocuronium Bromide 50 MG/5 ML VIAL ONE (19:24)
[2024-05-12] MEDS: Etomidate 40 MG (20 mL) VIAL ONE (19:24)
[2024-05-12] MEDS: Propofol 1,000 MG/100 ML VIAL IV ONE (19:24)
[2024-05-12] MEDS: Ventilator Sedation Protocol 1 EACH FS ONE (19:25)
[2024-05-12] MEDS ORDERED: Morphine 2 MG/ML VIAL SLOW IVP PRN (19:30)
[2024-05-12] MEDS ORDERED: Fentanyl BOLUS 250 ML IVPB PRN (19:30)
[2024-05-12] MEDS ORDERED: Propofol BOLUS 1,000 MG/100 ML VIAL IV PRN (19:30)
[2024-05-12 20:11] LABS: Actual Bicarbonate (HCO3a) 24.1 mEq/L (22-28); Base Excess (BEa) -1.5 mEq/L (-2.0 to +3.0); CO2 Tension 45.2 mmHg (35.0-45.0); Calcium, Ionized (arterial) 1.28 mmol/L (1.12-1.30); Carboxyhemoglobin (COHb) 1.5 gm% (0.0-3.0); Hematocrit-ABG 21 % (36.0-47.0); Hemoglobin (Hb) 7.1 g/dL (12.0-16.0); O2 Tension (PaO2), arterial 108.8 mmHg (> 70.0); Potassium - ABG Lab 4.05 mmol/L (3.70-5.30); pH, Arterial 7.345 (7.35-7.45)
[2024-05-12] MEDS: Lorazepam 2 MG/ML VIAL SLOW IVP PRN (20:13)
[2024-05-12 20:14] LABS: Puncture Site Left Radial artery
[2024-05-12 20:15] LABS: #Basophils Less than 0.03 10x3/uL (0.0-0.2); #Eosinophils Less than 0.03 10x3/uL (0.0-0.7); %Basophils 0.1 % (0.0-1.0); %Eosinophils 0.1 % (0.0-10.0); %Lymphocytes 4.1 % (21.0-51.0); %Monocytes 5.9 % (0.0-10.0); %Neutrophils 88.7 % (42.0-75.0); Hematocrit 19.8 % (36.0-47.0); Hemoglobin 6.3 g/dL (12.0-16.0); Mean Corpuscular HGB CONC 31.8 g/dL (32.0-36.0); Mean Corpuscular Hemoglobin 28.8 pg (27.0-31.0); Mean Corpuscular Volume 90.4 fL (78.0-98.0); Platelet Count 67 10x3/uL (130-400); RBC Distribution Width 23.8 % (11.5-14.5); Red Blood Cell (RBC) Count 2.19 mill/uL (4.20-5.40)
[2024-05-12 20:23] LABS: Lactic Acid 0.79 mmol/L (0.5-2.2)
[2024-05-12 20:28] LABS: ALT (SGPT) 12 U/L (8-55); AST (SGOT) 12 U/L (5-34); Albumin 3.2 g/dL (3.4-4.8); Alkaline Phosphatase 89 U/L (40-110); Anion Gap 15 mmol/L (10-20); BUN (Urea Nitrogen) 38 mg/dL (9.8-20.1); Bilirubin, Total 0.7 mg/dL (0.2-1.2); Calc. Creatinine Clearance 36 mL/min (70-130); Calcium 9.8 mg/dL (7.8-10.44); Carbon Dioxide 23 mmol/L (23-31); Chloride 107 mmol/L (98-107); Estimated GFR 24; Globulin 2.4 g/dL (2.4-3.5); Glucose 102 mg/dL (83-110); Magnesium 1.8 mg/dL (1.6-2.6); Phosphorus 2.4 mg/dL (2.3-4.7); Potassium 4.1 mmol/L (3.5-5.1); Protein, Total 5.6 g/dL (5.8-8.1); Sodium 141 mmol/L (136-145)
[2024-05-12 20:33] LABS: INR-International Normal Ratio 2.3; Prothrombin Time 25.2 sec (12.0-14.7)
[2024-05-12] MEDS: Propofol 1,000 MG/100 ML VIAL IV PRN (23:32)
[2024-05-13 01:17] LABS: Hematocrit 21.2 % (36.0-47.0); Hemoglobin 6.9 g/dL (12.0-16.0)
[2024-05-13 05:51] LABS: #Basophils Less than 0.03 10x3/uL (0.0-0.2); #Eosinophils Less than 0.03 10x3/uL (0.0-0.7); %Basophils 0.1 % (0.0-1.0); %Eosinophils 0.1 % (0.0-10.0); %Lymphocytes 4.1 % (21.0-51.0); %Neutrophils 88.6 % (42.0-75.0); Hematocrit 25.7 % (36.0-47.0); Hemoglobin 8.6 g/dL (12.0-16.0); Mean Corpuscular HGB CONC 33.5 g/dL (32.0-36.0); Mean Corpuscular Hemoglobin 29.1 pg (27.0-31.0); Mean Corpuscular Volume 86.8 fL (78.0-98.0); Platelet Count 58 10x3/uL (130-400); RBC Distribution Width 20.5 % (11.5-14.5); Red Blood Cell (RBC) Count 2.96 mill/uL (4.20-5.40)
[2024-05-13 06:00] LABS: Prothrombin Time 22.9 sec (12.0-14.7)
[2024-05-13 06:21] LABS: ALT (SGPT) 11 U/L (8-55); AST (SGOT) 11 U/L (5-34); Albumin 2.9 g/dL (3.4-4.8); Alkaline Phosphatase 86 U/L (40-110); Anion Gap 17 mmol/L (10-20); BUN (Urea Nitrogen) 40 mg/dL (9.8-20.1); Bilirubin, Total 1.4 mg/dL (0.2-1.2); Calc. Creatinine Clearance 0 mL/min (70-130); Calcium 9.9 mg/dL (7.8-10.44); Carbon Dioxide 20 mmol/L (23-31); Chloride 107 mmol/L (98-107); Estimated GFR 22; Globulin 2.4 g/dL (2.4-3.5); Glucose 92 mg/dL (83-110); Magnesium 1.7 mg/dL (1.6-2.6); Phosphorus 2.3 mg/dL (2.3-4.7); Protein, Total 5.3 g/dL (5.8-8.1); Sodium 140 mmol/L (136-145)
[2024-05-13] MEDS: Thiamine 100 MG TAB PO SCH (09:27)
[2024-05-13] MEDS ORDERED: Heparin 10,000 UNITS/ 10 ML VIAL ONE (10:33)
[2024-05-13] MEDS: Fentanyl CADD 100 ML IV SCH (12:27)
[2024-05-13] MEDS: Magnesium 2 GM/50 ML(in water) 2 GM in Premix 1 BAG IVPB SCH (14:44)
[2024-05-14 04:47] LABS: #Basophils 0.04 10x3/uL (0.0-0.2); %Basophils 0.2 % (0.0-1.0); %Eosinophils 0.2 % (0.0-10.0); %Lymphocytes 3.6 % (21.0-51.0); %Monocytes 4.9 % (0.0-10.0); Hematocrit 27.2 % (36.0-47.0); Hemoglobin 9.3 g/dL (12.0-16.0); Mean Corpuscular HGB CONC 34.2 g/dL (32.0-36.0); Mean Corpuscular Hemoglobin 28.7 pg (27.0-31.0); Platelet Count 62 10x3/uL (130-400); RBC Distribution Width 20.6 % (11.5-14.5); Red Blood Cell (RBC) Count 3.24 mill/uL (4.20-5.40)
[2024-05-14 05:33] LABS: Anion Gap 18 mmol/L (10-20); BUN (Urea Nitrogen) 23 mg/dL (9.8-20.1); Calc. Creatinine Clearance 46 mL/min (70-130); Calcium 9.2 mg/dL (7.8-10.44); Carbon Dioxide 21 mmol/L (23-31); Chloride 101 mmol/L (98-107); Estimated GFR 33; Glucose 93 mg/dL (83-110); Magnesium 2.1 mg/dL (1.6-2.6); Phosphorus 1.5 mg/dL (2.3-4.7); Potassium 3.8 mmol/L (3.5-5.1); Sodium 136 mmol/L (136-145)
[2024-05-14] MEDS: Cefepime 1 GM in Sodium Chloride 0.9% 100 ML IVPB SCH ×2 (06:05→17:24)
[2024-05-14] MEDS: Sodium Phosphate 30 MMOL in Sodium Chloride 0.9% 250 ML 250 ML IVPB SCH (09:44)
[2024-05-14] MEDS ORDERED: Heparin 10,000 UNITS/ 10 ML VIAL ONE (10:42)
[2024-05-14] MEDS: Albumin 25% 25 GM (100 mL) BOT IVPB PRN (11:53)
[2024-05-14] MEDS: NOREPINEPHRINE 8 MG/250 ML-D5W 250 ML IVPB SCH (13:23)
[2024-05-15] MEDS ORDERED: Vasopressin 20 UNITS in Sodium Chloride 0.9% 50 ML IV SCH (04:30)
[2024-05-15] MEDS: Vasopressin In 0.9 % NaCl 40 UNIT in Premix 1 BAG IV SCH (04:45)
[2024-05-15] MEDS: Albumin 5% 12.5 GM (250 mL) BOT IVPB SCH ×2 (04:45→07:44)
[2024-05-15 05:00] LABS: Actual Bicarbonate (HCO3a) 20.9 mEq/L (22-28); Base Excess (BEa) -3.6 mEq/L (-2.0 to +3.0); CO2 Tension 35.1 mmHg (35.0-45.0); Calcium, Ionized (arterial) 1.23 mmol/L (1.12-1.30); Carboxyhemoglobin (COHb) 1.7 gm% (0.0-3.0); Hematocrit-ABG 23 % (36.0-47.0); Hemoglobin (Hb) 7.7 g/dL (12.0-16.0); Potassium - ABG Lab 3.64 mmol/L (3.70-5.30); pH, Arterial 7.393 (7.35-7.45)
[2024-05-15 05:02] LABS: O2 Tension (PaO2), arterial 26.2 mmHg (> 70.0)
[2024-05-15 05:03] LABS: Puncture Site RBRA
[2024-05-15 05:04] LABS: ALV-art Gradient 143.825 mmHg (0-20)
[2024-05-15] MEDS: Albumin 5% 250 ML ONE (05:09)
[2024-05-15 06:04] LABS: Anion Gap 19 mmol/L (10-20); BUN (Urea Nitrogen) 32 mg/dL (9.8-20.1); Calc. Creatinine Clearance 32 mL/min (70-130); Calcium 9.1 mg/dL (7.8-10.44); Carbon Dioxide 19 mmol/L (23-31); Chloride 103 mmol/L (98-107); Estimated GFR 23; Glucose 120 mg/dL (83-110); Potassium 3.5 mmol/L (3.5-5.1); Sodium 137 mmol/L (136-145)
[2024-05-15 06:06] LABS: Lactic Acid 1.87 mmol/L (0.5-2.2)
[2024-05-15 06:10] LABS: Magnesium 1.8 mg/dL (1.6-2.6)
[2024-05-15 06:12] LABS: Hematocrit 24.1 % (36.0-47.0); Hemoglobin 8.1 g/dL (12.0-16.0); Mean Corpuscular HGB CONC 33.6 g/dL (32.0-36.0); Mean Corpuscular Hemoglobin 28.7 pg (27.0-31.0); Mean Corpuscular Volume 85.5 fL (78.0-98.0); Platelet Count 72 10x3/uL (130-400); RBC Distribution Width 20.6 % (11.5-14.5); Red Blood Cell (RBC) Count 2.82 mill/uL (4.20-5.40)
[2024-05-15 06:55] LABS: Anisocytosis SLIGHT = 6-15 cells HPF (0-5); Band 5 % (5-11); Burr Cells SLIGHT = 2-5 cells HPF (0-1); Lymphocytes 3 % (21-51); Macrocytosis SLIGHT = 6-15 cells HPF (0-5); Monocytes 2 % (0-10); Neutrophil 90 % (42-75); Platelet Adequacy Comment Platelets Decreased; Polychromasia SLIGHT = 2-3 cells HPF (0-2)
[2024-05-15 07:05] LABS: Schistocytes SLIGHT = 2-5 cells HPF (0-1)
[2024-05-15] MEDS ORDERED: Phenylephrine 40 MG/NS 250 ML 250 ML IVPB SCH (07:30)
[2024-05-15] MEDS: Calcium Chloride 1 GM/10 ML Abboject SYRINGE IVP SCH (07:43)
[2024-05-15] MEDS: Magnesium 2 GM/50 ML(in water) 2 GM in Premix 1 BAG IVPB SCH (07:43)
[2024-05-15 08:28] LABS: Prothrombin Time 22.8 sec (12.0-14.7)
[2024-05-15] MEDS ORDERED: Midazolam HCl 2 mg/2 ml Vial ONE (08:44)
[2024-05-15] MEDS ORDERED: KETAMINE 100 MG/ML (5ML VIAL) ONE (08:50)
[2024-05-15] MEDS: EPINEPHrine 1 MG/10 ML Abboject SYRINGE ONE (10:29)
[2024-05-15] MEDS: Desmopressin Acetate 4 mcg/ml AMPUL IVP SCH (10:34)
[2024-05-15] MEDS: Meropenem 1 GM in Sodium Chloride 0.9% 100 ML IVPB SCH (12:45)
[2024-05-15] MEDS ORDERED: Meropenem 500 MG in Sodium Chloride 0.9% 100 ML IVPB SCH (14:00)
[2024-05-15 15:28] LABS: Hematocrit 21.1 % (36.0-47.0); Hemoglobin 7.6 g/dL (12.0-16.0); Mean Corpuscular Hemoglobin 31.3 pg (27.0-31.0); Mean Corpuscular Volume 86.8 fL (78.0-98.0); Platelet Count 48 10x3/uL (130-400); RBC Distribution Width 15.9 % (11.5-14.5); Red Blood Cell (RBC) Count 2.43 mill/uL (4.20-5.40)
[2024-05-15 16:02] LABS: Anisocytosis SLIGHT = 6-15 cells HPF (0-5); Band 10 % (5-11); Burr Cells SLIGHT = 2-5 cells HPF (0-1); Large Platelets 6.9 % (0-5); Lymphocytes 3 % (21-51); Macrocytosis SLIGHT = 6-15 cells HPF (0-5); Monocytes 3 % (0-10); Neutrophil 84 % (42-75); Platelet Adequacy Comment Platelets Decreased; Polychromasia SLIGHT = 2-3 cells HPF (0-2); Tear Drops SLIGHT = 2-5 cells HPF (0-1)
[2024-05-15] MEDS: Meropenem 500 MG in Sodium Chloride 0.9% 100 ML IVPB SCH (20:16)
[2024-05-16 04:42] LABS: Hematocrit 19.9 % (36.0-47.0); Hemoglobin 7.1 g/dL (12.0-16.0); Mean Corpuscular HGB CONC 35.7 g/dL (32.0-36.0); Mean Corpuscular Hemoglobin 31.1 pg (27.0-31.0); Mean Corpuscular Volume 87.3 fL (78.0-98.0); Platelet Count 54 10x3/uL (130-400); RBC Distribution Width 16.9 % (11.5-14.5); Red Blood Cell (RBC) Count 2.28 mill/uL (4.20-5.40)
[2024-05-16 05:03] LABS: Anion Gap 16 mmol/L (10-20); BUN (Urea Nitrogen) 49 mg/dL (9.8-20.1); Calc. Creatinine Clearance 28 mL/min (70-130); Carbon Dioxide 19 mmol/L (23-31); Chloride 105 mmol/L (98-107); Estimated GFR 19; Glucose 153 mg/dL (83-110); Potassium 3.8 mmol/L (3.5-5.1); Sodium 136 mmol/L (136-145)
[2024-05-16 05:06] LABS: Phosphorus 2.8 mg/dL (2.3-4.7)
[2024-05-16 05:38] LABS: Band 9 % (5-11); Burr Cells MODERATE= 6-15 cells HPF (0-1); Eosinophils 1 % (0-10); Lymphocytes 7 % (21-51); Monocytes 5 % (0-10); Neutrophil 77 % (42-75); Platelet Adequacy Comment Platelets Decreased; Polychromasia SLIGHT = 2-3 cells HPF (0-2); Smudge Cells 6.9 %
[2024-05-16 07:20] LABS: Actual Bicarbonate (HCO3a) 20.4 mEq/L (22-28); Base Excess (BEa) -2.7 mEq/L (-2.0 to +3.0); CO2 Tension 27.8 mmHg (35.0-45.0); Calcium, Ionized (arterial) 1.21 mmol/L (1.12-1.30); Carboxyhemoglobin (COHb) 0.9 gm% (0.0-3.0); Hematocrit-ABG 20 % (36.0-47.0); Hemoglobin (Hb) 6.7 g/dL (12.0-16.0); O2 Tension (PaO2), arterial 113.6 mmHg (> 70.0); Potassium - ABG Lab 3.42 mmol/L (3.70-5.30); pH, Arterial 7.483 (7.35-7.45)
[2024-05-16 07:22] LABS: Puncture Site Arterial Line
[2024-05-16] MEDS ORDERED: Phytonadione 10 MG/ML AMP SLOW IVP SCH (11:30)
[2024-05-16] MEDS: Phytonadione 10 MG in Sodium Chloride 0.9% 50 ML IVPB SCH (14:16)
[2024-05-17 04:58] LABS: #Basophils Less than 0.03 10x3/uL (0.0-0.2); %Basophils 0.1 % (0.0-1.0); %Eosinophils 0.3 % (0.0-10.0); %Monocytes 12.6 % (0.0-10.0); %Neutrophils 76.2 % (42.0-75.0); Hematocrit 18.8 % (36.0-47.0); Hemoglobin 6.4 g/dL (12.0-16.0); Mean Corpuscular Hemoglobin 30.2 pg (27.0-31.0); Mean Corpuscular Volume 88.7 fL (78.0-98.0); Platelet Count 48 10x3/uL (130-400); RBC Distribution Width 17.7 % (11.5-14.5); Red Blood Cell (RBC) Count 2.12 mill/uL (4.20-5.40)
[2024-05-17 05:08] LABS: Anion Gap 18 mmol/L (10-20); BUN (Urea Nitrogen) 63 mg/dL (9.8-20.1); Calc. Creatinine Clearance 23 mL/min (70-130); Calcium 9.4 mg/dL (7.8-10.44); Carbon Dioxide 19 mmol/L (23-31); Chloride 104 mmol/L (98-107); Estimated GFR 15; Glucose 125 mg/dL (83-110); INR-International Normal Ratio 1.3; Potassium 3.8 mmol/L (3.5-5.1); Prothrombin Time 16.5 sec (12.0-14.7); Sodium 137 mmol/L (136-145)
[2024-05-17 19:17] LABS: Hematocrit 25.4 % (36.0-47.0); Mean Corpuscular HGB CONC 35.4 g/dL (32.0-36.0); Mean Corpuscular Volume 90.4 fL (78.0-98.0); Mean Platelet Volume 12.5 fL (7.4-10.4); Platelet Count 85 10x3/uL (130-400); RBC Distribution Width 15.5 % (11.5-14.5); Red Blood Cell (RBC) Count 2.81 mill/uL (4.20-5.40)
[2024-05-17 19:37] LABS: Band 7 % (5-11); Burr Cells SLIGHT = 2-5 cells HPF (0-1); Lymphocytes 8 % (21-51); Monocytes 9 % (0-10); Neutrophil 76 % (42-75); Nucleated RBC (Manual Ct) 2 % (0); Platelet Adequacy Comment Platelets Decreased; Polychromasia SLIGHT = 2-3 cells HPF (0-2)
[2024-05-18 03:43] LABS: Hematocrit 26.7 % (36.0-47.0); Hemoglobin 9.7 g/dL (12.0-16.0); Mean Corpuscular HGB CONC 36.3 g/dL (32.0-36.0); Mean Corpuscular Hemoglobin 31.8 pg (27.0-31.0); Mean Corpuscular Volume 87.5 fL (78.0-98.0); Mean Platelet Volume 12.1 fL (7.4-10.4); Platelet Count 80 10x3/uL (130-400); RBC Distribution Width 15.9 % (11.5-14.5); Red Blood Cell (RBC) Count 3.05 mill/uL (4.20-5.40)
[2024-05-18 04:11] LABS: Band 15 % (5-11); Eosinophils 2 % (0-10); Large Platelets 5.8 % (0-5); Lymphocytes 6 % (21-51); Metamyelocyte 1 % (0-0); Monocytes 11 % (0-10); Neutrophil 62 % (42-75); Nucleated RBC (Manual Ct) 1 % (0); Platelet Adequacy Comment Platelets Decreased; Polychromasia SLIGHT = 2-3 cells HPF (0-2); Reactive Lymphocytes 2 % (0-10)
[2024-05-18 04:21] LABS: Anion Gap 17 mmol/L (10-20); BUN (Urea Nitrogen) 71 mg/dL (9.8-20.1); Calc. Creatinine Clearance 23 mL/min (70-130); Calcium 9.2 mg/dL (7.8-10.44); Carbon Dioxide 17 mmol/L (23-31); Chloride 105 mmol/L (98-107); Estimated GFR 15; Glucose 103 mg/dL (83-110); Potassium 3.8 mmol/L (3.5-5.1); Sodium 135 mmol/L (136-145)
[2024-05-18] MEDS ORDERED: Heparin 10,000 UNITS/ 10 ML VIAL ONE (09:55)
[2024-05-18] MEDS: Meropenem 500 MG in Sodium Chloride 0.9% 100 ML IVPB SCH (20:27)
[2024-05-20 04:41] LABS: Hematocrit 27.3 % (36.0-47.0); Hemoglobin 9.3 g/dL (12.0-16.0); Mean Corpuscular HGB CONC 34.1 g/dL (32.0-36.0); Mean Corpuscular Hemoglobin 31.1 pg (27.0-31.0); Mean Corpuscular Volume 91.3 fL (78.0-98.0); Mean Platelet Volume 11.6 fL (7.4-10.4); Platelet Count 69 10x3/uL (130-400); Red Blood Cell (RBC) Count 2.99 mill/uL (4.20-5.40)
[2024-05-20 04:52] LABS: Anion Gap 15 mmol/L (10-20); BUN (Urea Nitrogen) 73 mg/dL (9.8-20.1); Calc. Creatinine Clearance 27 mL/min (70-130); Calcium 9.3 mg/dL (7.8-10.44); Carbon Dioxide 21 mmol/L (23-31); Chloride 101 mmol/L (98-107); Estimated GFR 19; Glucose 108 mg/dL (83-110); Potassium 3.2 mmol/L (3.5-5.1); Sodium 134 mmol/L (136-145)
[2024-05-20 05:47] LABS: Band 4 % (5-11); Eosinophils 1 % (0-10); Lymphocytes 9 % (21-51); Monocytes 12 % (0-10); Neutrophil 71 % (42-75); Platelet Adequacy Comment Platelets Decreased; Polychromasia SLIGHT = 2-3 cells HPF (0-2); Reactive Lymphocytes 1 % (0-10); Smudge Cells 8.9 %
[2024-05-20] MEDS: Potassium Chloride 20 MEQ in Premix 1 BAG IVPB SCH (10:20)
[2024-05-20] MEDS: Albumin 25% 25 GM (100 mL) BOT IVPB SCH (11:13)
[2024-05-21 04:20] LABS: Hemoglobin 7.8 g/dL (12.0-16.0); Mean Corpuscular HGB CONC 33.9 g/dL (32.0-36.0); Mean Corpuscular Hemoglobin 31.3 pg (27.0-31.0); Mean Corpuscular Volume 92.4 fL (78.0-98.0); Mean Platelet Volume 12.6 fL (7.4-10.4); Platelet Count 60 10x3/uL (130-400); RBC Distribution Width 16.6 % (11.5-14.5); Red Blood Cell (RBC) Count 2.49 mill/uL (4.20-5.40)
[2024-05-21 04:25] LABS: Fibrinogen 448 mg/dL (253-463)
[2024-05-21 04:26] LABS: INR-International Normal Ratio 1.4; PTT 43.3 sec (22.9-36.1); Prothrombin Time 17.6 sec (12.0-14.7)
[2024-05-21 04:29] LABS: Platelet Count 60 10x3/uL (130-400)
[2024-05-21 04:34] LABS: Anion Gap 19 mmol/L (10-20); BUN (Urea Nitrogen) 76 mg/dL (9.8-20.1); Calc. Creatinine Clearance 24 mL/min (70-130); Calcium 9.1 mg/dL (7.8-10.44); Carbon Dioxide 17 mmol/L (23-31); Chloride 100 mmol/L (98-107); Estimated GFR 17; Glucose 72 mg/dL (83-110); Potassium 3.5 mmol/L (3.5-5.1); Sodium 132 mmol/L (136-145)
[2024-05-21 04:45] LABS: Anisocytosis SLIGHT = 6-15 cells HPF (0-5); Band 3 % (5-11); Eosinophils 5 % (0-10); Hypochromia SLIGHT = 6-15 cells HPF (0-5); Lymphocytes 12 % (21-51); Monocytes 15 % (0-10); Neutrophil 65 % (42-75); Platelet Adequacy Comment Platelets Decreased; Polychromasia SLIGHT = 2-3 cells HPF (0-2); Schistocytes SLIGHT = 2-5 cells HPF (0-1)
[2024-05-21] MEDS ORDERED: Heparin 10,000 UNITS/ 10 ML VIAL ONE ×2 (07:01→10:02)
[2024-05-21] MEDS ORDERED: EPINEPHrine 1 MG/ML VIAL ONE (07:01)
[2024-05-21] MEDS ORDERED: Lidocaine 2% PF 100 mg/5 ml Syringe ONE (07:01)
[2024-05-21] MEDS ORDERED: Rocuronium Bromide 10 MG/ML (10ML VIAL) ONE (07:02)
[2024-05-21] MEDS ORDERED: PROPOFOL 0 ML ONE (07:02)
[2024-05-21] MEDS ORDERED: Bupivacaine PF 0.5% 30 ML VIAL ONE (07:02)
[2024-05-21] MEDS ORDERED: Midazolam HCl 2 mg/2 ml Vial ONE (07:59)
[2024-05-21] MEDS ORDERED: fentaNYL 50 mcg/mL 1 mL Vial ONE (08:03)
[2024-05-21 11:13] LABS: Phosphorus 3.3 mg/dL (2.3-4.7)
[2024-05-21 11:16] LABS: Cardiac Risk 5.7 (Less than 4.5); Cholesterol 63 mg/dl (< 200 Desired); HDL Cholesterol 11 mg/dL (>60 Neg Risk); LDL Cholesterol, Calculated 35 mg/dL; Magnesium 1.8 mg/dL (1.6-2.6); Triglycerides 84 mg/dL (Less than 150)
[2024-05-21] MEDS: Albumin 25% 25 GM (100 mL) BOT IVPB SCH (11:45)
[2024-05-21] MEDS ORDERED: LYTES IN TPN IVPB PRN (13:25)
[2024-05-22 03:38] LABS: Hematocrit 22.9 % (36.0-47.0); Hemoglobin 7.4 g/dL (12.0-16.0); Mean Corpuscular HGB CONC 32.3 g/dL (32.0-36.0); Mean Corpuscular Hemoglobin 30.7 pg (27.0-31.0); Platelet Count 75 10x3/uL (130-400); RBC Distribution Width 17.2 % (11.5-14.5); Red Blood Cell (RBC) Count 2.41 mill/uL (4.20-5.40)
[2024-05-22 03:49] LABS: Anion Gap 17 mmol/L (10-20); BUN (Urea Nitrogen) 28 mg/dL (9.8-20.1); Calc. Creatinine Clearance 42 mL/min (70-130); Carbon Dioxide 23 mmol/L (23-31); Chloride 101 mmol/L (98-107); Estimated GFR 32; Glucose 91 mg/dL (83-110); Magnesium 1.8 mg/dL (1.6-2.6); Potassium 3.7 mmol/L (3.5-5.1); Sodium 137 mmol/L (136-145)
[2024-05-22 03:54] LABS: Phosphorus 2.2 mg/dL (2.3-4.7)
[2024-05-22 04:02] LABS: Anisocytosis SLIGHT = 6-15 cells HPF (0-5); Band 2 % (5-11); Eosinophils 1 % (0-10); Hypochromia SLIGHT = 6-15 cells HPF (0-5); Lymphocytes 14 % (21-51); Monocytes 1 % (0-10); Neutrophil 82 % (42-75); Platelet Adequacy Comment Platelets Decreased; Polychromasia SLIGHT = 2-3 cells HPF (0-2); Schistocytes SLIGHT = 2-5 cells HPF (0-1)
[2024-05-22] MEDS: Albumin 25% 25 GM (100 mL) BOT IVPB SCH (05:00)
[2024-05-22] MEDS ORDERED: [UNRECOGNIZED DRUG - NUTRITION] FS PRN (08:06)
[2024-05-22] MEDS: Magnesium 2 GM/50 ML(in water) 2 GM in Premix 1 BAG IVPB SCH (09:46)
[2024-05-22] MEDS: POTASSIUM PHOSPHATE IV SCH (14:55)
[2024-05-22] MEDS: [UNRECOGNIZED DRUG - OTHER] IV SCH (14:55)
[2024-05-22] MEDS: SODIUM ACETATE IV SCH (14:55)
[2024-05-22] MEDS: SODIUM CHLORIDE IV SCH (14:55)
[2024-05-23 03:32] LABS: Hematocrit 19.5 % (36.0-47.0); Hemoglobin 6.3 g/dL (12.0-16.0); Mean Corpuscular HGB CONC 32.3 g/dL (32.0-36.0); Mean Corpuscular Hemoglobin 30.9 pg (27.0-31.0); Mean Corpuscular Volume 95.6 fL (78.0-98.0); Mean Platelet Volume 11.8 fL (7.4-10.4); Platelet Count 59 10x3/uL (130-400); Red Blood Cell (RBC) Count 2.04 mill/uL (4.20-5.40)
[2024-05-23 03:45] LABS: Phosphorus 2.1 mg/dL (2.3-4.7)
[2024-05-23 03:47] LABS: Anion Gap 10 mmol/L (10-20); BUN (Urea Nitrogen) 40 mg/dL (9.8-20.1); Calc. Creatinine Clearance 32 mL/min (70-130); Calcium 8.9 mg/dL (7.8-10.44); Carbon Dioxide 26 mmol/L (23-31); Chloride 99 mmol/L (98-107); Estimated GFR 23; Glucose 180 mg/dL (83-110); Magnesium 2.4 mg/dL (1.6-2.6); Potassium 3.4 mmol/L (3.5-5.1); Sodium 132 mmol/L (136-145)
[2024-05-23 04:13] LABS: Anisocytosis SLIGHT = 6-15 cells HPF (0-5); Band 13 % (5-11); Hypochromia SLIGHT = 6-15 cells HPF (0-5); Lymphocytes 6 % (21-51); Monocytes 3 % (0-10); Neutrophil 78 % (42-75); Platelet Adequacy Comment Platelets Decreased; Poikilocytosis SLIGHT = 6-15 cells HPF (0-5); Polychromasia SLIGHT = 2-3 cells HPF (0-2)
[2024-05-23] MEDS: Potassium Chloride 20 MEQ in Premix 1 BAG IVPB SCH ×2 (09:19→19:38)
[2024-05-24 04:49] LABS: #Basophils 0.04 10x3/uL (0.0-0.2); %Basophils 0.3 % (0.0-1.0); %Eosinophils 1.1 % (0.0-10.0); %Lymphocytes 5.6 % (21.0-51.0); %Neutrophils 82.5 % (42.0-75.0); Hematocrit 26.9 % (36.0-47.0); Hemoglobin 8.9 g/dL (12.0-16.0); Mean Corpuscular HGB CONC 33.1 g/dL (32.0-36.0); Mean Corpuscular Hemoglobin 30.8 pg (27.0-31.0); Mean Corpuscular Volume 93.1 fL (78.0-98.0); Mean Platelet Volume 12.8 fL (7.4-10.4); Platelet Count 60 10x3/uL (130-400); RBC Distribution Width 17.1 % (11.5-14.5); Red Blood Cell (RBC) Count 2.89 mill/uL (4.20-5.40)
[2024-05-24 05:06] LABS: Phosphorus 1.9 mg/dL (2.3-4.7)
[2024-05-24 05:11] LABS: Anion Gap 15 mmol/L (10-20); BUN (Urea Nitrogen) 57 mg/dL (9.8-20.1); Calc. Creatinine Clearance 28 mL/min (70-130); Calcium 8.9 mg/dL (7.8-10.44); Carbon Dioxide 20 mmol/L (23-31); Chloride 98 mmol/L (98-107); Estimated GFR 20; Glucose 137 mg/dL (83-110); Magnesium 2.3 mg/dL (1.6-2.6); Potassium 4.2 mmol/L (3.5-5.1); Sodium 129 mmol/L (136-145)
[2024-05-24] MEDS ORDERED: PHOS-NAK 1 PKT PACK PO SCH (08:00)
[2024-05-24] MEDS ORDERED: Heparin 10,000 UNITS/ 10 ML VIAL ONE (10:35)
[2024-05-24] MEDS: [UNRECOGNIZED DRUG - OTHER] IV SCH (15:05)
[2024-05-24] MEDS: SODIUM CHLORIDE IV SCH (15:05)
[2024-05-24] MEDS: SODIUM ACETATE IV SCH (15:05)
[2024-05-24] MEDS: SODIUM PHOSPHATE IV SCH (15:05)
[2024-05-25 03:37] LABS: #Basophils 0.04 10x3/uL (0.0-0.2); %Basophils 0.3 % (0.0-1.0); %Eosinophils 0.3 % (0.0-10.0); %Lymphocytes 6.9 % (21.0-51.0); %Monocytes 9.9 % (0.0-10.0); Hematocrit 24.2 % (36.0-47.0); Hemoglobin 8.1 g/dL (12.0-16.0); Mean Corpuscular HGB CONC 33.5 g/dL (32.0-36.0); Mean Corpuscular Hemoglobin 30.5 pg (27.0-31.0); Mean Platelet Volume 12.3 fL (7.4-10.4); Platelet Count 63 10x3/uL (130-400); RBC Distribution Width 16.9 % (11.5-14.5); Red Blood Cell (RBC) Count 2.66 mill/uL (4.20-5.40)
[2024-05-25 04:01] LABS: ALT (SGPT) 6 U/L (8-55); AST (SGOT) 23 U/L (5-34); Albumin 2.3 g/dL (3.4-4.8); Alkaline Phosphatase 120 U/L (40-110); Anion Gap 13 mmol/L (10-20); BUN (Urea Nitrogen) 30 mg/dL (9.8-20.1); Bilirubin, Total 1.1 mg/dL (0.2-1.2); Calc. Creatinine Clearance 50 mL/min (70-130); Calcium 8.5 mg/dL (7.8-10.44); Carbon Dioxide 25 mmol/L (23-31); Chloride 99 mmol/L (98-107); Estimated GFR 38; Globulin 3.1 g/dL (2.4-3.5); Glucose 157 mg/dL (83-110); Potassium 3.4 mmol/L (3.5-5.1); Protein, Total 5.4 g/dL (5.8-8.1); Sodium 134 mmol/L (136-145)
[2024-05-25 07:04] LABS: Phosphorus 1.8 mg/dL (2.3-4.7)
[2024-05-25] MEDS ORDERED: Glycopyrrolate 0.2 MG/ML 5 ML SYRINGE SLOW IVP SCH (10:30)
[2024-05-25 11:38] LABS: ANA Symphony (Qualitative) Negative (Negative); ANA Symphony (Quantitative) 0.2 Ratio (< 0.7 Negative); dsDNA IgG Antibody 1.1 IU/mL (<10 Negative)
[2024-05-25] MEDS: Scopolamine 1 mg/72 hour Patch TD SCH (11:38)
[2024-05-25] MEDS: Potassium Phosphate 30 MMOL in Sodium Chloride 0.9% 250 ML 250 ML IVPB SCH (12:49)
[2024-05-26 04:32] LABS: #Basophils 0.03 10x3/uL (0.0-0.2); %Basophils 0.2 % (0.0-1.0); %Eosinophils 0.3 % (0.0-10.0); %Lymphocytes 7.1 % (21.0-51.0); %Monocytes 9.6 % (0.0-10.0); %Neutrophils 77.7 % (42.0-75.0); Hematocrit 20.9 % (36.0-47.0); Hemoglobin 7.1 g/dL (12.0-16.0); Mean Corpuscular Hemoglobin 30.9 pg (27.0-31.0); Mean Corpuscular Volume 90.9 fL (78.0-98.0); Mean Platelet Volume 11.5 fL (7.4-10.4); Platelet Count 69 10x3/uL (130-400); RBC Distribution Width 16.5 % (11.5-14.5)
[2024-05-26 04:37] LABS: Anion Gap 14 mmol/L (10-20); BUN (Urea Nitrogen) 51 mg/dL (9.8-20.1); Calc. Creatinine Clearance 38 mL/min (70-130); Calcium 8.3 mg/dL (7.8-10.44); Carbon Dioxide 24 mmol/L (23-31); Chloride 96 mmol/L (98-107); Estimated GFR 28; Glucose 128 mg/dL (83-110); Potassium 3.9 mmol/L (3.5-5.1); Sodium 130 mmol/L (136-145)
[2024-05-26 09:34] LABS: Hematocrit 20.1 % (36.0-47.0); Hemoglobin 6.7 g/dL (12.0-16.0); Mean Corpuscular HGB CONC 33.3 g/dL (32.0-36.0); Mean Corpuscular Hemoglobin 30.9 pg (27.0-31.0); Mean Corpuscular Volume 92.6 fL (78.0-98.0); Mean Platelet Volume 12.4 fL (7.4-10.4); Platelet Count 69 10x3/uL (130-400); RBC Distribution Width 16.5 % (11.5-14.5); Red Blood Cell (RBC) Count 2.17 mill/uL (4.20-5.40)
[2024-05-26] MEDS ORDERED: Albumin 25% 25 GM (100 mL) BOT IVPB PRN (10:15)
[2024-05-26] MEDS ORDERED: Heparin 10,000 UNITS/ 10 ML VIAL ONE (10:51)
[2024-05-26 13:39] LABS: Hematocrit 22.2 % (36.0-47.0); Hemoglobin 7.5 g/dL (12.0-16.0)
[2024-05-26] MEDS: SODIUM CHLORIDE IV SCH (15:14)
[2024-05-26] MEDS: SODIUM ACETATE IV SCH (15:14)
[2024-05-26] MEDS: [UNRECOGNIZED DRUG - OTHER] IV SCH (15:14)
[2024-05-26] MEDS: POTASSIUM PHOSPHATE IV SCH (15:14)
[2024-05-26] MEDS: Albumin 25% 25 GM (100 mL) BOT IVPB SCH (17:32)
[2024-05-26] MEDS: Polyvinyl Alcohol 1.4%/Povidone 0.6% Opth Drops EA EYE SCH (22:22)
[2024-05-26] MEDS: Scopolamine 1 mg/72 hour Patch TD SCH (23:00)
[2024-05-27 06:55] LABS: #Basophils Less than 0.03 10x3/uL (0.0-0.2); %Basophils 0.2 % (0.0-1.0); %Eosinophils 0.4 % (0.0-10.0); %Lymphocytes 10.9 % (21.0-51.0); %Monocytes 12.5 % (0.0-10.0); %Neutrophils 71.1 % (42.0-75.0); Hemoglobin 6.4 g/dL (12.0-16.0); Mean Corpuscular HGB CONC 33.7 g/dL (32.0-36.0); Mean Corpuscular Hemoglobin 30.9 pg (27.0-31.0); Mean Corpuscular Volume 91.8 fL (78.0-98.0); Mean Platelet Volume 11.4 fL (7.4-10.4); Platelet Count 82 10x3/uL (130-400); RBC Distribution Width 16.6 % (11.5-14.5); Red Blood Cell (RBC) Count 2.07 mill/uL (4.20-5.40)
[2024-05-27 07:05] LABS: Anion Gap 14 mmol/L (10-20); BUN (Urea Nitrogen) 37 mg/dL (9.8-20.1); Calc. Creatinine Clearance 44 mL/min (70-130); Calcium 8.4 mg/dL (7.8-10.44); Carbon Dioxide 26 mmol/L (23-31); Chloride 98 mmol/L (98-107); Estimated GFR 33; Glucose 121 mg/dL (83-110); Potassium 3.8 mmol/L (3.5-5.1); Sodium 134 mmol/L (136-145)
[2024-05-27 07:11] LABS: Magnesium 1.9 mg/dL (1.6-2.6); Phosphorus 3.9 mg/dL (2.3-4.7)
[2024-05-27] MEDS ORDERED: Calcium Carbonate 500 MG ChewTAB PER TUBE PRN (09:53)
[2024-05-27] MEDS: Sodium Bicarbonate Tab 325 MG TAB PER TUBE SCH (15:20)
[2024-05-27] MEDS: Acetaminophen 650 MG Suppository PR PRN (20:36)
[2024-05-28 04:58] LABS: #Basophils 0.05 10x3/uL (0.0-0.2); %Basophils 0.4 % (0.0-1.0); %Eosinophils 0.3 % (0.0-10.0); %Lymphocytes 8.2 % (21.0-51.0); %Monocytes 11.6 % (0.0-10.0); %Neutrophils 76.4 % (42.0-75.0); Hematocrit 24.6 % (36.0-47.0); Hemoglobin 8.3 g/dL (12.0-16.0); Mean Corpuscular HGB CONC 33.7 g/dL (32.0-36.0); Mean Corpuscular Hemoglobin 30.5 pg (27.0-31.0); Mean Corpuscular Volume 90.4 fL (78.0-98.0); Mean Platelet Volume 10.9 fL (7.4-10.4); Platelet Count 111 10x3/uL (130-400); RBC Distribution Width 18.4 % (11.5-14.5); Red Blood Cell (RBC) Count 2.72 mill/uL (4.20-5.40)
[2024-05-28 05:08] LABS: Anion Gap 14 mmol/L (10-20); BUN (Urea Nitrogen) 57 mg/dL (9.8-20.1); Calc. Creatinine Clearance 34 mL/min (70-130); Calcium 8.6 mg/dL (7.8-10.44); Carbon Dioxide 24 mmol/L (23-31); Chloride 96 mmol/L (98-107); Estimated GFR 24; Glucose 116 mg/dL (83-110); Phosphorus 5.1 mg/dL (2.3-4.7); Sodium 130 mmol/L (136-145)
[2024-05-28] MEDS: Folic Acid 1 MG TAB PER TUBE SCH (08:49)
[2024-05-28] MEDS ORDERED: Heparin 10,000 UNITS/ 10 ML VIAL ONE (10:59)
[2024-05-28 12:29] VITALS: BMI 32.5
[2024-05-28] MEDS ORDERED: SODIUM CHLORIDE IV SCH (14:00)
[2024-05-28] MEDS ORDERED: SODIUM ACETATE IV SCH (14:00)
[2024-05-28] MEDS ORDERED: POTASSIUM CHLORIDE IV SCH (14:00)
[2024-05-28] MEDS ORDERED: [UNRECOGNIZED DRUG - OTHER] IV SCH (14:00)
[2024-05-28] MEDS: SODIUM CHLORIDE IV SCH (14:06)
[2024-05-28] MEDS: [UNRECOGNIZED DRUG - OTHER] IV SCH (14:06)
[2024-05-28] MEDS: SODIUM ACETATE IV SCH (14:06)
[2024-05-28] MEDS: POTASSIUM CHLORIDE IV SCH (14:06)
[2024-05-29 03:46] LABS: #Basophils 0.03 10x3/uL (0.0-0.2); %Basophils 0.3 % (0.0-1.0); %Eosinophils 0.6 % (0.0-10.0); %Lymphocytes 9.7 % (21.0-51.0); %Monocytes 10.3 % (0.0-10.0); %Neutrophils 76.9 % (42.0-75.0); Hematocrit 24.1 % (36.0-47.0); Mean Corpuscular HGB CONC 33.2 g/dL (32.0-36.0); Mean Corpuscular Hemoglobin 29.9 pg (27.0-31.0); Mean Corpuscular Volume 89.9 fL (78.0-98.0); Mean Platelet Volume 11.1 fL (7.4-10.4); Platelet Count 107 10x3/uL (130-400); RBC Distribution Width 17.8 % (11.5-14.5); Red Blood Cell (RBC) Count 2.68 mill/uL (4.20-5.40)
[2024-05-29 03:58] LABS: Anion Gap 11 mmol/L (10-20); BUN (Urea Nitrogen) 40 mg/dL (9.8-20.1); Calc. Creatinine Clearance 45 mL/min (70-130); Calcium 8.3 mg/dL (7.8-10.44); Carbon Dioxide 26 mmol/L (23-31); Chloride 98 mmol/L (98-107); Estimated GFR 33; Glucose 119 mg/dL (83-110); Potassium 3.3 mmol/L (3.5-5.1); Sodium 132 mmol/L (136-145)
[2024-05-29 04:13] LABS: Phosphorus 3.4 mg/dL (2.3-4.7)
[2024-05-29 07:52] VITALS: BP 106/56
[2024-05-29 08:23] VITALS: TEMP 98.7
[2024-05-29] MEDS ORDERED: POTASSIUM CHLORIDE IV SCH (14:00)
[2024-05-29] MEDS ORDERED: [UNRECOGNIZED DRUG - OTHER] IV SCH (14:00)
[2024-05-29] MEDS ORDERED: SODIUM ACETATE IV SCH (14:00)
[2024-05-29] MEDS ORDERED: SODIUM CHLORIDE IV SCH (14:00)
== END 2024-05-29 10:10 | disposition short-term general hospital (02) | DRG 4 ==
LOC: ERS 20:39 → ERHOLD 05-01 02:07 → 2NO 05-01 09:18 → CCU 05-01 18:05 → IMCU/EMU 05-08 18:59 → CCU 05-12 18:54
PROVIDERS: ADMIT Student in an Organized Health Care Education/Training Program; ATTEND Internal Medicine
PROC: 0W3P8ZZ Control Bleeding in Gastrointestinal Tract, Via Natural or Artificial Opening Endoscopic (ICD-10-PCS; principal; 2024-05-02)
PROC: 0W3P8ZZ Control Bleeding in Gastrointestinal Tract, Via Natural or Artificial Opening Endoscopic (ICD-10-PCS; 2024-05-04)
PROC: 5A09357 Assistance with Respiratory Ventilation, Less than 24 Consecutive Hours, Continuous Positive Airway Pressure (ICD-10-PCS; 2024-05-11)
PROC: 5A1955Z Respiratory Ventilation, Greater than 96 Consecutive Hours (ICD-10-PCS; 2024-05-12)
PROC: 0B110F4 Bypass Trachea to Cutaneous with Tracheostomy Device, Open Approach (ICD-10-PCS; 2024-05-20)
PROC: 0JH63XZ Insertion of Tunneled Vascular Access Device into Chest Subcutaneous Tissue and Fascia, Percutaneous Approach (ICD-10-PCS; 2024-05-21)
PROC: 05HM33Z Insertion of Infusion Device into Right Internal Jugular Vein, Percutaneous Approach (ICD-10-PCS; 2024-05-21)
DX: D62 Acute posthemorrhagic anemia (principal); G93.41 Metabolic encephalopathy; K26.4 Chronic or unspecified duodenal ulcer with hemorrhage; A41.9 Sepsis, unspecified organism; K22.11 Ulcer of esophagus with bleeding; J96.00 Acute respiratory failure, unspecified whether with hypoxia or hypercapnia; N17.9 Acute kidney failure, unspecified; I50.32 Chronic diastolic (congestive) heart failure; I13.0 Hypertensive heart and chronic kidney disease with heart failure and stage 1 through stage 4 chronic kidney disease, or unspecified chronic kidney disease; E87.20 Acidosis, unspecified; N39.0 Urinary tract infection, site not specified; N18.4 Chronic kidney disease, stage 4 (severe); F10.239 Alcohol dependence with withdrawal, unspecified; Z66 Do not resuscitate; E87.5 Hyperkalemia; I50.83 High output heart failure; E11.22 Type 2 diabetes mellitus with diabetic chronic kidney disease; M10.9 Gout, unspecified; Z90.710 Acquired absence of both cervix and uterus; Z98.890 Other specified postprocedural states; Z79.899 Other long term (current) drug therapy; Z79.82 Long term (current) use of aspirin; E87.6 Hypokalemia; D63.1 Anemia in chronic kidney disease; E83.42 Hypomagnesemia; D69.6 Thrombocytopenia, unspecified
CPT/HCPCS: 36415; 36416; 36430; 36600; 70450; 71045; 76705; 76770; 76999; 80048; 80053; 80061; 80069; 80202; 80306; 80307; 81001; 82040; 82140; 82274; 82550; 82570; 82607; 82728; 82805; 83540; 83550; 83605; 83690; 83735; 83880; 84100; 84134; 84156; 84300; 84425; 84443; 84484; 85025; 85049; 85300; 85362; 85384; 85610; 85730; 86038; 86225; 86704; 86706; 86803; 86850; 86900; 86901; 87040; 87070; 87077; 87086; 87149; 87186; 87205; 87340; 90935; 93005; 93010; 93306; 94002; 94003; 94640; 94660; 96374; 96375; 97139; A4217; A6258; C1713; C1750; C1751; C1889; G0257; J0171; J0613; J0665; J0692; J0696; J1630; J1644; J1815; J1940; J2003; J2060; J2185; J2250; J2272; J2405; J2470; J2597; J2704; J2916; J3010; J3370; J3411; J3430; J3475; J3480; J3490; J7030; J7042; J7050; J7070; J7611; J7620; J7999; P9016; P9035; P9045; P9047; P9059; Q5105